=== PATIENT | female | born 1995 | race Caucasian/White ===

== ENCOUNTER 2018-05-26 10:06 | Outpatient (REF) | payer BC, SELFPAY ==
[2018-05-26 19:11] LABS: Cholesterol 194 mg/dL (50-200); Glucose 78 mg/dL (70-100); HDL Cholesterol 69 mg/dL (40-60); LDL CHOLESTEROL 107 mg/dL (<100); Triglyceride 111 mg/dL (30-150)
== END 2018-05-26 10:07 ==
LOC: NCHCN 10:06
PROVIDERS: PCP Nurse Practitioner Family; Visit Provider Nurse Practitioner Family
DX: Z00.00 Encounter for general adult medical examination without abnormal findings (principal); Z13.220 Encounter for screening for lipoid disorders; Z13.1 Encounter for screening for diabetes mellitus
CPT/HCPCS: 80061; 82947; 83721

== ENCOUNTER 2019-06-09 15:28 | Outpatient (REF) | payer BC, SELFPAY ==
--- NOTE | 2019-06-09 15:10 | PAPFT_PTH ---
PATIENT: Rima Moralez LOC: [facility] U#:[id number] AGE/SX: 23/F ROOM: RE06/09/[address]: Kezia Thorne : 1995 BED: DIS: 06/09/2019 SPEC #: [id number] RECD: 06/10/19 13:02 STATUS: IKE RERosy #: [id number] RACHEAL: 06/09/19 15:[address]: Kezia Thorne DEPT: [facility] Cytology RECD BY: Naa Elias Tissues: 1 - CX/ENDOCX FOR PAP SMEARS Procedures: PAP THIN PREP/UVM Screening HPV DNA PROBE Comments: [id number] (CHLAMYDIA/GC)
[2019-06-11 15:27] LABS: Chlamydia Result Negative; GC Result Negative; Specimen Description SEE COMMENTS
== END 2019-06-09 15:48 ==
LOC: NCHCN 15:28
PROVIDERS: PCP Nurse Practitioner Family; Visit Provider Nurse Practitioner Family
DX: Z11.3 Encounter for screening for infections with a predominantly sexual mode of transmission (principal); Z12.4 Encounter for screening for malignant neoplasm of cervix; Z11.51 Encounter for screening for human papillomavirus (HPV); Z01.419 Encounter for gynecological examination (general) (routine) without abnormal findings
CPT/HCPCS: 87491; 87591; 88142; 87624

== ENCOUNTER 2020-11-02 18:40 | Outpatient (REF) | payer BC, SELFPAY ==
[2020-11-02 20:05] LABS: HCT 41.3 % (36.0-46.0); HGB 13.8 g/dL (11.2-15.7); MCH 29.5 pg (27.0-33.0); MCHC 33.4 % (32.0-36.0); MCV 88.2 fL (80-95); MPV 9.2 fL (8.0-11.0); Platelet Count 302 10^3/uL (130-400); RBC 4.68 10^6/uL (3.93-5.22); RDW 11.6 % (11.7-14.6); RDW-SD 37.3 fL; WBC 12.67 10^3/uL (4.4-10.8)
[2020-11-02 20:26] LABS: Glucose 101 mg/dL (74-106); TSH 1.34 uIU/mL (0.36-3.74)
== END 2020-11-02 19:00 ==
LOC: NCHCN 18:40
PROVIDERS: PCP Nurse Practitioner Family; Visit Provider Internal Medicine
DX: G43.909 Migraine, unspecified, not intractable, without status migrainosus (principal); R42 Dizziness and giddiness; Z33.1 Pregnant state, incidental
CPT/HCPCS: 82947; 85027; 84443

== ENCOUNTER 2021-05-22 15:50 | Outpatient (CLI) | payer BC, SELFPAY ==
[2021-05-22 11:24] LABS: HCG Quant, Pregnancy 18 mIU/mL (1-3)
== END 2021-05-22 15:51 | disposition home or self-care (01) ==
LOC: LBO 15:51
PROVIDERS: PCP Internal Medicine; Visit Provider Advanced Practice Midwife
DX: O20.0 Threatened abortion (principal)
CPT/HCPCS: 36415; 86850; 86900; 86901; 84702

== ENCOUNTER 2021-05-24 03:35 | Outpatient (CLI) | payer BC, SELFPAY ==
[2021-05-24 16:34] LABS: HCG Quant, Pregnancy 9 mIU/mL (1-3)
== END 2021-05-24 03:36 | disposition home or self-care (01) ==
LOC: LBO 03:35
PROVIDERS: PCP Internal Medicine; Visit Provider Advanced Practice Midwife
DX: O20.0 Threatened abortion (principal)
CPT/HCPCS: 36415; 84702

== ENCOUNTER 2021-09-12 04:11 | Outpatient (CLI) | payer BC, SELFPAY ==
[2021-09-12 15:32] LABS: Kit/Specimen SENT
[2021-09-12 15:39] LABS: Abs Immature Grans 0.04 10^3/uL (0.0-0.06); Absolute Basophil Count 0.04 10^3/uL (0.0-0.2); Absolute Eosinophil Count 0.16 10^3/uL (0.0-0.7); Absolute Lymphocyte Count 3.21 10^3/uL (1.2-3.4); Absolute Monocyte Count 0.77 10^3/uL (0.1-0.8); Absolute Neutrophil Count 9.21 10^3/uL (1.2-6.7); Basophils % 0.3; Eosinophils % 1.2; HCT 34.8 % (36.0-46.0); HGB 12.1 g/dL (11.2-15.7); Immature Grans % 0.3; Lymphocytes % 23.9; MCHC 34.8 % (32.0-36.0); MCV 83.5 fL (80-95); MPV 9.2 fL (8.0-11.0); Monocytes % 5.7; Neutrophils % 68.6; Nucleated RBC 0 %; Platelet Count 233 10^3/uL (130-400); RBC 4.17 10^6/uL (3.93-5.22); RDW 11.8 % (11.7-14.6); RDW-SD 35.7 fL; WBC 13.43 10^3/uL (4.4-10.8)
[2021-09-12 16:02] LABS: *AMPHETAMINES SCREEN URINE Negative (Negative); *BARBITURATES SCREEN URINE Negative (Negative); *BENZODIAZEPINES SCREEN URINE Negative (Negative); Cannabinoids THC Negative (Negative); Cocaine Screen,Urine Negative (Negative); METHADONE URINE SCREEN Negative (Negative); OPIATES URINE SCREEN Negative (Negative)
[2021-09-12 16:20] LABS: Tricyclic Antidepressants Negative (Negative)
[2021-09-13 15:25] LABS: Chlamydia Result Negative (Negative); GC Result Negative (Negative)
[2021-09-14 08:58] LABS: Hepatitis B Surface Ag Negative (Negative)
[2021-09-14 09:34] LABS: HIV-1/2 Ag & Ab Screen Negative (Negative)
[2021-09-14 09:46] LABS: Hepatitis C Ab w Rflx HCV PCR Negative (Negative)
[2021-09-15 09:52] LABS: Varicella IgG Antibody Positive (See Note)
[2021-09-15 09:56] LABS: Rubella IgG Ab (UVM) Negative (See Note)
[2021-09-15 12:04] LABS: Syphilis Total Ab w/Reflex Nonreactive (Nonreactive)
[2021-09-17 10:28] LABS: Buprenorphine Negative ng/mL (Cutoff: 5.0)
[2021-09-21 10:35] LABS: Specimen WB Whole Blood
[2021-09-26 12:29] LABS: Result Summary NEGATIVE; Specimen WB Whole Blood
== END 2021-09-12 04:12 | disposition home or self-care (01) ==
LOC: LBO 04:11
PROVIDERS: PCP Internal Medicine; Visit Provider Advanced Practice Midwife
DX: Z34.91 Encounter for supervision of normal pregnancy, unspecified, first trimester (principal)
CPT/HCPCS: 80307; 81329; 86787; 86803; 87340; 87389; 87491; 87591; 81220; 85025; 86762; 86780; 87086

== ENCOUNTER 2022-01-05 01:45 | Outpatient (CLI) | payer BC, SELFPAY ==
[2022-01-05 10:40] LABS: HCT 31.9 % (36.0-46.0); HGB 10.8 g/dL (11.2-15.7); MCH 29.5 pg (27.0-33.0); MCHC 33.9 % (32.0-36.0); MCV 87.2 fL (80-95); MPV 8.3 fL (8.0-11.0); Platelet Count 220 10^3/uL (130-400); RBC 3.66 10^6/uL (3.93-5.22); RDW 12.3 % (11.7-14.6); RDW-SD 39.2 fL; WBC 17.86 10^3/uL (4.4-10.8)
[2022-01-05 10:49] LABS: Glucose,1 Hr (Glucola) 114 mg/dL (80-140)
== END 2022-01-05 01:46 | disposition home or self-care (01) ==
LOC: LBO 01:46
PROVIDERS: PCP Internal Medicine; Visit Provider Advanced Practice Midwife
DX: Z34.92 Encounter for supervision of normal pregnancy, unspecified, second trimester (principal)
CPT/HCPCS: 36415; 82950; 85027

== ENCOUNTER 2022-02-02 00:32 | Outpatient (CLI) | payer BC, SELFPAY ==
--- NOTE | 2022-02-02 06:30 | DI.US_ITS ---
Exam(s) US OB ROXANA WEIGHT EXAM: US OB ROXANA WEIGHT CLINICAL HISTORY: covid infection in ,u07.1. TECHNIQUE: Transabdominal obstetrical ultrasound performed. COMPARISON: US US OB 2-3 TRIMESTER from 11/02/2021 FINDINGS: Transabdominal obstetrical ultrasound performed. FINDINGS: Number of fetuses: One. position: Tor breech Placental location: There is a grade 1 posterior placenta. No evidence of previa. BIOMETRIC DATA: BPD: 77 mm = 31 weeks 1 day HC: 288 mm = 31 weeks 5 days AC: 272 mm = 31 weeks 2 days FL: 58 mm = 30 weeks 2 days EFW: 1677 grms 16% Composite Age: 31 weeks 1 day EDC: 04/05/2022 Heart Rate: 152BPM Amniotic fluid index: 14.1 cm. Visually, amount of fluid is within normal limits. IMPRESSION: 1. Single live intrauterine gestation as above. 2. Estimated weight is 1677gms. This is the 16th percentile 3. Amniotic fluid index is 14.1 cm. Visually within normal limits. DATA REPOSITORY:
== END 2022-02-02 00:52 ==
PROVIDERS: PCP Internal Medicine; Visit Provider Advanced Practice Midwife
DX: O98.513 Other viral diseases complicating pregnancy, third trimester (principal); U07.1 COVID-19; Z3A.31 31 weeks gestation of pregnancy
CPT/HCPCS: 76816

== ENCOUNTER 2022-03-05 17:11 | Outpatient (REF) | payer BC, SELFPAY | END 2022-03-05 17:12 | disposition home or self-care (01) | LOC: LBN 17:11 | PROVIDERS: PCP Internal Medicine; Visit Provider Advanced Practice Midwife | DX: Z34.93 Encounter for supervision of normal pregnancy, unspecified, third trimester (principal); Z3A.36 36 weeks gestation of pregnancy; Z36.85 Encounter for antenatal screening for Streptococcus B | CPT/HCPCS: 87081 ==

== ENCOUNTER 2022-03-07 02:45 | Outpatient (CLI) | payer BC, SELFPAY ==
[2022-03-07 09:23] LABS: Abs Immature Grans 0.15 10^3/uL (0.0-0.06); Absolute Basophil Count 0.05 10^3/uL (0.0-0.2); Absolute Eosinophil Count 0.17 10^3/uL (0.0-0.7); Absolute Monocyte Count 0.86 10^3/uL (0.1-0.8); Absolute Neutrophil Count 9.41 10^3/uL (1.2-6.7); Basophils % 0.4; Eosinophils % 1.3; HCT 36.5 % (36.0-46.0); HGB 12.1 g/dL (11.2-15.7); Immature Grans % 1.1; Lymphocytes % 19.5; MCH 29.6 pg (27.0-33.0); MCHC 33.2 % (32.0-36.0); MCV 89 fL (80-95); MPV 9.3 fL (8.0-11.0); Monocytes % 6.5; Neutrophils % 71.2; Nucleated RBC 0.2 % (0.0-0.3); Platelet Count 187 10^3/uL (130-400); RBC 4.09 10^6/uL (3.93-5.22); RDW 15.3 % (11.7-14.6); RDW-SD 49.2 fL; WBC 13.21 10^3/uL (4.4-10.8)
[2022-03-07 09:24] LABS: Absolute Lymphocyte Count 2.58 10^3/uL (1.2-3.4)
[2022-03-07 10:05] LABS: Source Nasal/Nares
[2022-03-07 11:06] LABS: COVID-19 PCR Negative (Negative)
== END 2022-03-07 02:46 | disposition home or self-care (01) ==
LOC: LBO 02:45
PROVIDERS: Obstetrics & Gynecology; PCP Internal Medicine; Visit Provider Internal Medicine
DX: O32.1XX0 Maternal care for breech presentation, not applicable or unspecified (principal); Z3A.36 36 weeks gestation of pregnancy; Z20.822 Contact with and (suspected) exposure to COVID-19; Z01.812 Encounter for preprocedural laboratory examination; Z01.818 Encounter for other preprocedural examination
CPT/HCPCS: 36415; 86850; 86900; 86901; 87635; 85025

== ENCOUNTER 2022-03-07 11:39 | Outpatient (CLI) | payer BC, SELFPAY ==
[2022-03-07 10:47] VITALS: BP 126/81; PULSE 88
[2022-03-07 10:50] VITALS: BP 126/81; PULSE 88; TEMP 37
[2022-03-07] MEDS: Lactated Ringers 1,000 ML 200 ML IV (11:30)
[2022-03-07 11:46] VITALS: BP 135/81; PULSE 88; RESP 20; TEMP 36.9
[2022-03-07] MEDS: Terbutaline 1 MG/ML VIAL 0.25 MG SC (11:47)
--- NOTE | 2022-03-07 12:21 | PROC.BLANK_ITS ---
Date of service: 03/07/22 Time of Service: 11:21 Version Note Version Note DATE OF PROCEDURE: 03/07/22 PRE-OP DIAGNOSES: Tor breech presentation at 36 weeks 4 days EGA POST-OP DIAGNOSES: same PROCEDURE: Unsuccessful attempt at external cephalic version SURGEON: Key Verma Assisting Surgeon: Ambar Green Anesthesia: none Complications: None Patient was transported to: no change Patient's condition: stable Indications: 26-year-old G3, P0 female with a breech presentation diagnosed at time of a OB ultrasound for growth and fluid check. Position was confirmed by ultrasound 03/05/2022 and patient counseled regarding external cephalic version. Findings: Fetus in the breech presentation with spine to maternal spine. Fundal placenta. Subjectively adequate fluid. NST reactive no evidence of decelerations. Procedure Description: After informed consent was obtained and patient voiced understanding of the risks and benefits of the procedure she received 0.25 mg of subcutaneous terbutaline. NST had been performed before hand and was category 1 heart rate tracing. Bedside ultrasound was used to confirm breech position. Water- based lubricant was used based over maternal abdomen. 1 provider applied pressure and up direction above the pubic symphysis and then hopes of lifting th e presenting part while second provider use an equal amount of pressure to direct head clockwise. The second attempt was unsuccessful as demonstrated by ultrasound. heart rate was 140 range at the completion of the first attempt. Second attempt in the same direction was performed and once again was unsuccessful. 2 more attempts were made this time in a counterclockwise direction and once again without disturbance of the heart rate. presenting part remained the buttocks and the head was midline with spine to maternal spine. Patient was monitored for 30 minutes after the procedure. She will follow-up for delivery counseling in the near future. She is aware that if she were to go into labor or experience spontaneous rupture membranes she needs to present to the center in expedient manner.
[2022-03-07 12:23] VITALS: BP 113/75; PULSE 106
[2022-03-07 14:45] VITALS: BP 125/77; PULSE 71
--- NOTE | 2022-03-07 16:11 | NUR.NOTE ---
Nursing Note: LATE NOTE FOR [id number] Gallegos AT BED SIDE [address] Anita mohamud breech position 1147 Terbutaline 0.25 mg SC given by Dr Song 1149attempt to turn baby by [address] Song [address] Song 1152 end attempt version 1152 FH by ultrasound [address] Song. 1154 end attempted version [address] Song 1203 end attempt. still Breech
--- OUTSIDE RECORDS SUMMARY | 2022-03-08 11:28 | XMS_ITS ---
:1995 Author Care Team Providers Name Role Phone PEACE RAMOS MD Primary Care Provider [phone] Allergies Code Code System Name Reaction Severity Status Onset NKDA ? Medications Name Status Start Date Stop Date ? ? diazepam 5 mg tablet Completed ? 08/05/2019 doxycycline hyclate 100 mg capsule Completed ? 08/05/2019 Eun Fe 1.5/30 (28) 1.5 mg-30 mcg (21)/75 mg (7) tablet Active ? Not available TAKE ONE TABLET BY MOUTH EVERY DAY misoprostol 200 mcg tablet Completed ? 08/05 Tri-Linyah (28) 0.18 mg(7)/0.215 mg(7)/0.25 mg(7)-35 mcg Complet ed ? 08/05/2019 tablet Problems None recorded. Procedures Date Name Performed by ? ? Removal of Wart Information not avai lable Notes: on right index finger ? Leg Surgery Information not avai lable Notes: broke leg Results Lab Results Date Name Specimen Result Interpretation Description Value Range Status Address ? 07/17/2019 Type + BLD - Abo A ? Final [facility], [facility] Lab Blood (Internal) : [address] ? ? BLD - Rh positive ? Final [facility] L ab (Internal) : [address] ? ? BLD - Ab Scrn negative negative Final [facility] L ab (Internal) : [address] Past Encounters 03/02/2022 Seen by Rayon Coner Arpita Cabrera MD: [address] [place] [phone], Ph. Social History Tobacco Smoking Status Never Smoker Vaccine List None recorded. Plan of Care Reminders Provider Appointments None recorded. ? ? Lab None recorded. ? ? Referral None recorded. ? ? Procedures None recorded. ? ? Surgeries None recorded. ? ? Imaging None recorded. ? ? Vitals 08/05/2019 04:20PM Office 20 Height Weight BMI Blood Pressure 157.48 cm 59.87 kg 24.1 kg/m2 120/70 mm[Hg] 07/20/2019 04:00PM Procedure 30 Height Blood Pressure 157.48 cm 126/78 mm[Hg]
--- OUTSIDE RECORDS SUMMARY | 2022-03-08 11:28 | XMS_ITS | Encounter Summary ---
:1995 Author Care Team Providers Name Role Phone Atul Marx MD Primary Care Provider [phone] Reason for Visit Visit Assessment and Plan 1. Seen by supervisor education We discussed routine care, fami ly risk factors, risk factors when applicable, maternal screenings, screenings after , benefits of , support by consu ltants, WIC in the medical home, car sea t inspection, male circumcision (when applicable) with risks and benefits and lack of strong clinical evidence thereof, safe sleep, office structure, policies and hours and rare possibility of reschedul ed appointments due to emergencies. Answered all questions. Will delivery at [facility], instructed to silvano l the day of discharge for a f/u appointment here. None of her records were availa ble for review today. Discussion Note: None recorded.Patient educational handouts: No information available. Plan of Care Reminders Provider Appointments None recorded. ? ? Lab None recorded. ? ? Referral None recorded. ? ? Procedures None recorded. ? ? Surgeries None recorded. ? ? Imaging None recorded. ? ? Medications Name Start Date ? ? Eun Fe 1.5/30 (28) 1.5 mg-30 mcg (21)/75 mg (7) tabl et ? TAKE ONE TABLET BY MOUTH EVERY DAY Medications Administered None recorded. Vitals None recorded. Results Lab Results None recorded. Allergies Code Code System Name Reaction Severity Onset NKDA ? ? ? Problems None recorded. Procedures Date Name Performed by ? ? Removal of Wart Information not avai lable Notes: on right index finger ? Leg Surgery Information not avai lable Notes: broke leg Vaccine List None recorded. Social History Tobacco Smoking Status Never Smoker What is your code status? 0 Functional Status Unknown. Past Encounters 03/02/2022 Seen by [employer] Arpita Cabrera MD: [address] [place] [phone], Ph. 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 </div><div>&l t;br></div><div>[facility] care, will delivery [facility]. </div><div&gt ;
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 Nopregnancy complications. </div><div>No smoking, no ETOH, no THC or drugs. 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 His first baby as well. </div><div>Pets: Dog, cat, bunnies, goats, chickens. </div><div>
</div><div>FHx: NO CCHD, no hip dysplasia, no genetic disease, no SIDS. </div><div>
</div>Review of Systems: ROS as noted in the HPI Review of Systems None recorded. Physical Exam ? Notes: <div> woman in NAD. </div>
== END 2022-03-07 13:15 | disposition home or self-care (01) ==
LOC: OBS 12:38 → BCD 03-09 10:05
PROVIDERS: PCP Internal Medicine; Visit Provider Obstetrics & Gynecology Gynecology
DX: O32.1XX0 Maternal care for breech presentation, not applicable or unspecified (principal); Z3A.36 36 weeks gestation of pregnancy
CPT/HCPCS: 59412; 85027; 86900; 86901

== ENCOUNTER 2022-03-26 03:36 | Outpatient (CLI) | payer BC, SELFPAY ==
[2022-03-26 10:35] LABS: HCT 38.7 % (36.0-46.0); HGB 13.4 g/dL (11.2-15.7); MCH 30.2 pg (27.0-33.0); MCHC 34.6 % (32.0-36.0); MCV 87 fL (80-95); MPV 9.3 fL (8.0-11.0); Platelet Count 177 10^3/uL (130-400); RBC 4.43 10^6/uL (3.93-5.22); RDW 14.9 % (11.7-14.6); RDW-SD 47.1 fL; WBC 13.51 10^3/uL (4.4-10.8)
== END 2022-03-26 03:37 | disposition home or self-care (01) ==
LOC: LBO 03:37
PROVIDERS: PCP Internal Medicine; Visit Provider Obstetrics & Gynecology Gynecology
DX: O32.1XX0 Maternal care for breech presentation, not applicable or unspecified (principal); Z01.818 Encounter for other preprocedural examination; Z01.812 Encounter for preprocedural laboratory examination; Z3A.39 39 weeks gestation of pregnancy
CPT/HCPCS: 36415; 85027; 86850; 86900; 86901

== ENCOUNTER 2022-03-26 03:48 | Outpatient (CLI) | payer BC, SELFPAY ==
[2022-03-26 09:56] LABS: Source Nasal/Nares
[2022-03-26 15:36] LABS: COVID-19 PCR Negative (Negative)
== END 2022-03-26 03:49 | disposition home or self-care (01) ==
LOC: LBO 03:49
PROVIDERS: PCP Internal Medicine; Visit Provider Obstetrics & Gynecology Gynecology
DX: Z20.822 Contact with and (suspected) exposure to COVID-19 (principal); Z01.818 Encounter for other preprocedural examination
CPT/HCPCS: 87635

== ENCOUNTER 2022-03-28 05:36 | Inpatient (IN) | payer BC, SELFPAY ==
--- NOTE | 2022-03-20 08:26 | ANES.CON_ITS ---
General Date of Service Date of Service: 03/20/22 Reason for Consult Requesting Provider: Key Verma How Consult Conducted:: Chart Review Reason for Consult:: Chiari Malformation type 1 Consult Recommendation after Review:: Matt Mackey, I reviewed Elisabeth's record at [facility] and the neruologist felt that her headaches were not related to the incidental finding of the Chiari Malformation type 1. No concerning symptoms were present so it was opted to observe rather than pursue any intervention at this time. Upon literature review of Chiari Malformation Type 1 with delivery, though there are theoretical risks to brain herniation with labor contractions, no instances of brain herniation was reported in a 2020 literature review going back to 1990. They did however recommend vaginal delivery under neuraxial blockade for asymptomatic patients and limiting maternal Valsalva efforts either via delivery under regional or general anesthesia or by choosing assisted vaginal delivery under neuraxial blockade. Thanks, Noreen On 03/15/22 @ 16:50 Key Verma Wrote To Anesthesia Group Patient is scheduled for primary delivery on 03/28/2022 secondary to a breech presentation.? GRE malformation type I as documented in [facility] records.? Presenting symptom was adult onset headaches.? None since she became .? She wanted to make sure that regional anesthesia was not contraindicated. ao Meds Allergies and Home Medications Allergies Allergy/AdvReac Type Severity Reaction Status Date / Time No Known Allergies Allergy Verified 03/15/22 16:01 Home Medication Medication Instructions Recorded vitamin-ferrous fumarate 1 tab PO DAILY 05/25/21 28 mg iron-folic acid 800 mcg tablet blood builder 1 tab PO DAILY 02/19/22 [facility] Active Problems Active Problems: Problem Status Onset Code Tinea versicolor B36.0 COVID-19 affecting in second trimester O98.512, U07.1 Rubella non-immune status, antepartum O99.891, Z28.3 Migraine G43.909 Z34.90 Medical History Medical History (Updated 12/29/21 @ 16:06 by Mery Ghosh) Chiari I malformation Dizziness Dysfunctional uterine bleeding Hx of migraines Chiari malformation diagnosed 03/2021 Surgical History Surgical History (Updated 09/12/21 @ 13:37 by Eve Mancilla CNM) Leg fracture, left Tib/Fib fracture and repair Tobacco Smoking/Tobacco Use Status: Never Prental History History 3 Para 0 Hx # Term Pregnancies 0 Multiple births 0 Hx # Pregnancies 0 Ectopic pregnancies 0 AB induced 1 Hx Number of Living Children 0 AB spontaneous 1 Past Pregnancies Del. Date GA/Weeks # Outcome Route Wgt Sex Labor Lgth Anesthes ia Location [facility] 05/21/21 Unsuccessful Delivery Date: 05/21/21 Last Updated by: Eve Mancilla CNM SAB Vital Signs & Lab Results Point of Care Results Nursing Point of Care Results: No Data to Display Lab Results Blood Type / Crossmatch: Patient ABO/Rh A Positive 03/07/22 Antibody Screen NEGATIVE 03/07/22 Complete Blood Count: White Blood Count 13.21 10^3/uL (4.4-10.8) H 03/07/22 09:20 Red Blood Count 4.09 10^6/uL (3.93-5.22) 03/07/22 09:20 Hemoglobin 12.1 g/dL (11.2-15.7) 03/07/22 09:20 Hematocrit 36.5 % (36.0-46.0) 03/07/22 09:20 Platelet Count 187 10^3/uL (130-400) 03/07/22 09:20 Complete Metabolic Panel: No Data to Display Liver Function Panel: No Data to Display Coagulation Panel: No Data to Display Cardiac Panel: No Data to Display Arterial Blood Gas: No Data to Display Venous Blood Gas: No Data to Display Pancreas Panel: No Data to Display Thyroid Panel: No Data to Display Infectious Disease: Coronavirus (COVID-19)(PCR) Negative (Negative) 03/07/22 09:55 Coronavirus 2019 Source Nasal/Nares 03/07/22 09:55 Blood Cultures: No Data to Display Toxicology Panel: No Data to Display Panel: No Data to Display Anesthesia Assessment and Plan Anesthesia History Personal History: No History of Anesthesia Complications Family History: No Family History of Anesthesia Complications Cardiac & Pulmonary Exam Does patient have a Pacemaker or an ICD?: No Airway Exam Known Difficult Airway: No Mallampati Class: 2 Mouth Opening: Normal (> 3cm) Thyromental Distance: Greater than 3 cm Neck Range of Motion: Full ROM Neck Circumference: Normal Teeth Condition: Normal Dentition
[2022-03-28] VITALS (11 sets, daily range): BP systolic 107–124; BP diastolic 64–86; PULSE 72–105; RESP 16–18; TEMP 36.6–37.1; O2SAT 96–99; BMI 30.9
[2022-03-28] MEDS: Lactated Ringers 1,000 ML 200 ML IV (06:45)
[2022-03-28] MEDS: ceFAZolin 2 GM/50 ML BAG IVPB (07:07)
[2022-03-28] MEDS: AZITHROMYCIN 500 MG in Normal Saline 250 ML 250 MG IVPB (07:08)
[2022-03-28] MEDS: Sodium Citrate 30 ML CUP PO (07:08)
--- NOTE | 2022-03-28 07:17 | ANES.PREOP_ITS ---
General Info Date of Service Date Performed: 03/28/22 Height: 5 ft 3 in Weight: 79.37 kg Body Mass Index (BMI): 30.9 Surgical Procedure: Operation Date: 03/28/22 07:40 Proposed Procedure Side Surgeon p Section Key Verma MD Actual Procedure Side Surgeon p Section Not Applicable Key Verma MD Pre-Op Diagnosis Post-Op Diagnosis Breech presentation Meds Allergies and Home Medications Allergies Allergy/AdvReac Type Severity Reaction Status Date / Time No Known Allergies Allergy Verified 03/28/22 07:10 Home Medication Medication Instructions Recorded vitamin-ferrous fumarate 1 tab PO DAILY 05/25/21 28 mg iron-folic acid 800 mcg tablet blood builder 1 tab PO DAILY 02/19/22 Current Visit Medications: Current Medications Generic Name Dose Route Start Last Admin Trade Name Freq PRN Reason Stop Dose Admin Citric Acid/Sodium Citrate 30 ml 03/27/22 14:00 03/28/22 07:08 Sodium Citrate 30 Ml Cup PO 30 ml PREOP MARIE Administration Sodium Chloride 500 mls @ 0 mls/hr 03/27/22 13:16 Saline 500ml Bag IV PRN PRN As Directed Ringer's Solution 1,000 mls @ 200 mls/hr 03/27/22 13:30 03/28/22 06:45 IV 200 mls/hr INFUSION MARIE Administration Cefazolin Sodium/Dextrose 2 gm in 50 mls @ 100 mls/hr 03/27/22 13:30 03/28/22 07:07 Ancef Duplex IVPB 100 mls/hr PREOP MARIE Administration Azithromycin 500 mg/ Sodium 250 mls @ 250 mls/hr 03/27/22 13:30 03/28/22 07:08 Chloride IVPB 250 mls/hr PREOP MARIE Administration IV Miscellaneous Supplies 1 each 03/27/22 13:30 Iv Access IV DIRECTED MARIE Sodium Chloride 0 ml 03/27/22 13:16 Normal Saline Flush 10 Ml Syr IVP PRN PRN PFSH Active Problems Active Problems: Problem Status Onset Code Preop examination Z01.818 Breech presentation O32.1XX0 Tinea versicolor B36.0 COVID-19 affecting in second trimester O98.512, U07.1 Rubella non-immune status, antepartum O99.891, Z28.3 Migraine G43.909 Z34.90 Medical History Medical History (Updated 03/26/22 @ 12:29 by Key Verma MD) Chiari I malformation Dizziness Dysfunctional uterine bleeding Hx of migraines Chiari malformation diagnosed 03/2021 Surgical History Surgical History (Updated 09/12/21 @ 13:37 by Eve Mancilla CNM) Leg fracture, left Tib/Fib fracture and repair Tobacco Smoking/Tobacco Use Status: Never Alcohol Alcohol Intake: never Substance Use Substance use: Never Substance use type: does not use Prental History History 3 Para 0 Hx # Term Pregnancies 0 Multiple births 0 Hx # Pregnancies 0 Ectopic pregnancies 0 AB induced 1 Hx Number of Living Children 0 AB spontaneous 1 Past Pregnancies Del. Date GA/Weeks # Outcome Route Wgt Sex Labor Lgth Anesthes ia Location Prov Complic 05/21/21 Unsuccessful Delivery Date: 05/21/21 Last Updated by: Eve Mancilla CNM SAB Vital Signs and Lab Results Vital Signs Most Recent Vital Signs in EMR: Most Recent Vital Signs Temp Pulse Resp BP Pulse Ox 36.6 C 105 H 18 122/86 98 03/28/22 06:38 03/28/22 06:38 03/28/22 06:38 03/28/22 06:38 03/28/22 06:38 Lab Results Result Diagrams: 03/28/22 06:00 Blood Type / Crossmatch: Patient ABO/Rh A Positive 03/26/22 Antibody Screen NEGATIVE 03/26/22 Complete Blood Count: White Blood Count 13.51 10^3/uL (4.4-10.8) H 03/26/22 10:24 Red Blood Count 4.43 10^6/uL (3.93-5.22) 03/26/22 10:24 Hemoglobin 13.4 g/dL (11.2-15.7) 03/26/22 10:24 Hematocrit 38.7 % (36.0-46.0) 03/26/22 10:24 Platelet Count 177 10^3/uL (130-400) 03/26/22 10:24 Complete Metabolic Panel: No Data to Display Liver Function Panel: No Data to Display Coagulation Panel: No Data to Display Cardiac Panel: No Data to Display Arterial Blood Gas: No Data to Display Venous Blood Gas: No Data to Display Pancreas Panel: No Data to Display Thyroid Panel: No Data to Display Infectious Disease: Coronavirus (COVID-19)(PCR) Negative (Negative) 03/26/22 09:25 Coronavirus 2019 Source Nasal/Nares 03/26/22 09:25 Blood Cultures: No Data to Display Toxicology Panel: No Data to Display Panel: No Data to Display Anesthesia Assessment and Plan Anesthesia History Personal History: No History of Anesthesia Complications Family History: No Family History of Anesthesia Complications Exercise Tolerance Exercise Tolerance: Metabolic Equivalents>4 Pertinent Negatives Pertinent Negatives: No Symptoms of GERD, No Major Cardiovascular Symptoms or Complaints and No Major Pulmonary Symptoms or Complaints Cardiac & Pulmonary Exam Cardiac Exam: Normal S1/S2 Heart Sounds Pulmonary Exam: Clear Bilateral Breath Sounds Implantable Cardiac Device Does patient have a Pacemaker or an ICD?: No Airway Exam Known Difficult Airway: No Mallampati Class: 2 Mouth Opening: Normal (> 3cm) Thyromental Distance: Greater than 3 cm Neck Range of Motion: Full ROM Neck Circumference: Normal Teeth Condition: Normal Dentition ASA Classification ASA Score: ASA 3 Emergency Case?: No NPO Status NPO Status: NPO Clears >2 hours, Solids >8 hours and Full Stomach Status Status: Confirmed Anesthesia Plan Resuscitation Status: Full Code Anesthesia Technique: Spinal Anesthesia Airway Planned: Natural Airway Pain Management: Intrathecal Analgesia Monitors Used: Standard Monitors
--- NOTE | 2022-03-28 08:38 | ROE_ITS ---
Date of service: 03/28/22 Time of Service: 08:38 Operative Note Operative Note DATE OF PROCEDURE: 03/28/22 PRE-OP DIAGNOSIS: breech presentation at term. primary scheduled LTCS PROCEDURE: Scheduled low transverse delivery SURGEON: Key Verma ASSISTING SURGEON: Ambar Green Refer to Anesthesia Record ESTIMATED BLOOD LOSS: 300 PATHOLOGY: none sent (Cord blood to laboratory) COMPLICATIONS: None Patient was transported to: floor Patient's condition: stable Implants: None Indications: 26-year-old G1 now P1 female with a persistent breech presentation. Patient underwent an unsuccessful external cephalic version at 36weeks 4 days EGA. Findings: Viable male infant in ayse breech presentation spine to maternal spine. Clear amniotic fluid. Normal placenta with three-vessel cord. Normal adnexa uterus and pelvis. Wt 2930gm. His parents plan to name him Willy. Procedure Description: Patient was taken to the operating room she is placed in the sitting position and spinal anesthesia was administered without difficulty. She was then placed in the dorsal supine position with a leftward tilt. SCDs and a Cano catheter to gravity drainage were in place. A vaginal prep with Betadine was performed a nd the patient was prepped and draped in the usual sterile fashion. After a adequate level of anesthesia was achieved a Pfannenstiel skin incision was made approximately 2 cm superior to the pubic symphysis using a scalpel and the underlying subcutaneous tissue dissected using Bovie electrocautery to the level of the rectus fascia. The rectus fascia was then nicked in the midline and the fascial incision extended laterally using curved Levi scissors. 2 Von clamps were applied to the inferior rectus fascia and the rectus fascia was dissected off of the underlying rectus muscles using Bovie electrocautery and blunt technique. A similar technique was carried out on the superior rectus fascia. Rectus muscles were then in the midline and the peritoneum entered bluntly. The peritoneal incision was extended laterally using blunt technique. The vesicle-uterine peritoneum over lower uterine segment was incised with curved Levi scissors and the bladder flap created bluntly. Scalpel was used to incise the lower uterine segment in a transverse fashion. The uterine incision was extended bluntly and the amniotic sac was ruptured and a finger was placed on each anterior superior iliac crest of the breech presentation and the buttocks followed by the trunk were delivered to the level of the shoulders and the head was delivered atraumatically. The cord was doubly clamped and cut and the infant handed off to the waiting pediatric team. Cord bloods were obtained and the placenta was extracted with a combination of fundal massage and gentle cord traction. The uterus was exteriorized cleared of all clots and debris and the uterine incision reapproximated with a running lock suture of 0 Vicryl followed by a second imbricating suture of 0 Vicryl. Uterine incision was noted be hemostatic. The uterus was returned to the abdomen and the paracolic gutters cleared of all clots and debris. Uterine incision, the bladder flap, and the abdominal wall were inspected and noted to be hemostatic. The rectus fascia was reapproximated with a running suture of 0 Vicryl. space within the subcutaneous tissue closed with a running suture of 2-0 Vicryl. The skin incision was reapproximated with a subcuticular closure of 4-0 Monocryl. Steri-Strips were placed over the incision and the incision covered with a dry sterile dressing.. The uterus was massaged for any remaining clots and debris. The patient was transported to recovery area in stable condition. All sponge, lap, and needle counts correct x2.
[2022-03-28] MEDS: Ketorolac 30 MG/ML VIAL IVP ×2 (14:21→20:06)
[2022-03-28] MEDS: Normal Saline Flush 10 ML SYR IVP ×2 (14:22→20:08)
[2022-03-29 04:15] VITALS: BP 120/75; PULSE 75; RESP 16; TEMP 36.9; O2SAT 99
[2022-03-29 06:28] LABS: Abs Immature Grans 0.14 10^3/uL (0.0-0.06); Absolute Monocyte Count 0.88 10^3/uL (0.1-0.8); Absolute Neutrophil Count 11.57 10^3/uL (1.2-6.7); Basophils % 0.3; Eosinophils % 1.1; HCT 33.4 % (36.0-46.0); HGB 11.2 g/dL (11.2-15.7); Immature Grans % 0.9; Lymphocytes % 15.6; MCH 29.9 pg (27.0-33.0); MCHC 33.5 % (32.0-36.0); MCV 89 fL (80-95); MPV 9.4 fL (8.0-11.0); Monocytes % 5.8; Neutrophils % 76.3; Platelet Count 145 10^3/uL (130-400); RBC 3.75 10^6/uL (3.93-5.22); RDW 15.2 % (11.7-14.6); RDW-SD 48.7 fL; WBC 15.16 10^3/uL (4.4-10.8)
[2022-03-29 06:29] LABS: Absolute Basophil Count 0.05 10^3/uL (0.0-0.2); Absolute Eosinophil Count 0.17 10^3/uL (0.0-0.7); Absolute Lymphocyte Count 2.36 10^3/uL (1.2-3.4)
[2022-03-29] MEDS: Docusate Sodium 100 MG CAP PO ×2 (08:23→23:57)
[2022-03-29] MEDS: oxyCODONE 5 mg/Acetaminophen 325 mg TAB PO ×3 (08:23→16:55)
[2022-03-29 08:30] VITALS: BP 130/84; PULSE 83; RESP 18; TEMP 37; O2SAT 99
[2022-03-29] MEDS: Ibuprofen 600 MG TAB PO ×2 (12:22→19:43)
[2022-03-29 12:25] VITALS: BP 122/82; PULSE 88; RESP 20; TEMP 37.1; O2SAT 97
--- NOTE | 2022-03-29 13:20 | W.ANESPOSTOP ---
Postoperative Evaluation Date, Time and Location Date Performed: 03/29/22 Time Performed: 13:20 Patient Location: Obstetrics Vital Signs Most Recent Imported Vital Signs: Most Recent Vital Signs Temp Pulse Resp BP Pulse Ox 37.0 C 83 18 130/84 99 03/29/22 08:30 03/29/22 08:30 03/29/22 08:30 03/29/22 08:30 03/29/22 08:30 Pain Score Most Recent Pain Score: Most Recent Pain Score Pain Level 2 03/29/22 12:22 Assessment Mental Status: Awake (Alert & Oriented to Patient Baseline) Airway and Respiratory Function: Patent airway with normal (patient baseline) respiratory exam Cardiovascular Function: Hemodynamically Stable Hydration Status: Adequately Hydrated Nausea & Vomiting: No Nausea or Vomiting Pain: Pain is tolerable per patient Peripheral Nerve Block: Patient did not receive a nerve block Postoperative Comments:: doing well, comfortable with no nausea or headache.
[2022-03-29 16:50] VITALS: BP 122/84; PULSE 90; TEMP 36.5; O2SAT 95
--- NOTE | 2022-03-29 17:04 | DSE_ITS ---
Date of service: 03/29/22 Time of Service: 17:04 DS: Diagnosis Discharge Diagnosis (1) Breech presentation: Status: Acute (2) S/P primary low transverse : Status: Acute Asessment and Plan: 03/28/22. For breech presentation after unsuccessful ECV. M. 2930gm. Willy Discharge Plan Disposition Patient Disposition: HOME Condition: Improving Discharge Details Reason For Visit: Delivery Admit Date/Time: 03/28/22 05:36 Admit Provider: Key Verma Attending Provider: Key Verma [facility] Hospital Course: Admitted to hospital morning of surgery and underwent an uncomplicated LTCS. Infant in ayse breech presentation with clear amniotic fluid. Nl placenta. Nl uterus and adnexa. Pt discharged to home POD2 successfully breast feeding. She will f/u in [facility] in 2 weeks for an inspection of incision and assessment of maternal well being. Home Meds and New Rx's Prescriptions: No Action vit-iron fum-folic ac 28 mg iron- 800 mcg tablet 1 tab PO DAILY blood builder tablet 1 tab PO DAILY Discharge Instructions Additional Instructions: Make an appointment for a visit to [facility] in 2 weeks. You have two prescriptions that have been sent to the [facility] in [facility]. Percocet 5/325 10 tablets. Take one tablet every 6 hours as needed for strong pain. The other prescription is for Ibuprofen 600mg every 6 hours as needed for milder pain. Stand Alone Forms: BC Instructions, BC Discharge Instruc Activity:: Activity as Tolerated Equipment/Supplies:: No Equipment Needed Diet:: As Tolerated OB:DS Summary Summary Delivery Method: Primary Episiotomy Description: None Laceration Description: None Laceration Extension: N/A complications OB DS: none Contraception Discussed Contraception Discussed: No, [place] Gender-Baby A: Male weight: 6 lb 7.353 oz Disposition of Baby A: Home Status at Discharge Functional status at discharge: independent ambulation Overall status at discharge: patient is progressing back to baseline Mental Status: mental status grossly normal Speech and Movement: speech and movement normal Mood: congruent mood Affect: normal affect Time Spent with Patient providing and/or coordinating discharge services: Less than 30 minutes Exam Physical Exam Vital signs: Temp Pulse Resp BP Pulse Ox 98.8 F 88 20 122/82 97 03/29/22 12:25 03/29/22 12:25 03/29/22 12:25 03/29/22 12:25 03/29/22 12:25 Vital Signs Reviewed: Yes Narrative: 26-year-old G1 now P1 female with a persistent breech presentation.? Patient underwent an unsuccessful external cephalic version at 36weeks 4 days EGA. She was admitted the morning of 03/28/22 and underwent a LTCS without complications. Findings: Viable male infant in ayse breech presentation spine to maternal spine.? Clear amniotic fluid.? Normal placenta with three-vessel cord.? Normal adnexa uterus and pelvis. Wt 2930gm. (6lb7oz) His parents plan to name him Willy. PFSH All Active Problems (Updated 03/26/22 @ 12:29 by Key Verma MD) S/P primary low transverse (Acute) Preop examination (Acute) Breech presentation (Acute) Tinea versicolor (Acute) axilla and abdomen COVID-19 affecting in second trimester (Acute) Rubella non-immune status, antepartum (Acute) Migraine (Chronic) (Acute) Medical History (Updated 03/26/22 @ 12:29 by Key Verma MD) Chiari I malformation Dizziness Dysfunctional uterine bleeding Hx of migraines Chiari malformation diagnosed 03/2021 Surgical History (Updated 03/29/22 @ 17:05 by Key Verma MD) Leg fracture, left Tib/Fib fracture and repair Family History (Updated 09/12/21 @ 13:40 by Eve Mancilla CNM) Father Hypertension meds in the past Social History (Updated 03/29/22 @ 17:07 by Key Verma MD) Smoking/Tobacco Use Status: Never Smoking risk assessment performed?: Yes Alcohol Intake: never Drug use: Never Substance use type: does not use Household members: spouse, children and other Details: H-Markie. 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 Do you feel safe at home: Yes Do you feel safe in your relationship?: Yes History History 3 Para 0 Hx # Term Pregnancies 0 Multiple births 0 Hx # Pregnancies 0 Ectopic pregnancies 0 AB induced 1 Hx Number of Living Children 0 AB spontaneous 1 Past Pregnancies Del. Date GA/Weeks # Outcome Route Wgt Sex Labor Lgth Anesthes ia Location Prov Complic 05/21/21 Unsuccessful Delivery Date: 05/21/21 Last Updated by: NATASHA Horta DS: Data Vitals/I&O Vitals and I&O: Vital Signs Temperature 98.8 F 03/29/22 12:25 Pulse 88 03/29/22 12:25 Pulse Rhythm Regular 03/29/22 08:30 Respiratory Rate 20 03/29/22 12:25 Respiratory Depth Normal 03/29/22 08:30 Blood Pressure 122/82 03/29/22 12:25 Blood Pressure Mean 95 03/29/22 12:25 Pulse Oximetry 97 03/29/22 12:25 Oxygen Delivery Method Room Air 03/28/22 06:38 Oxygen Flow Rate 0 03/28/22 06:38 Pain Level 4 03/29/22 16:55 Comment 03/28/22 16:12 Intake & Output 03/28/22 03/29/22 03/29/22 23:59 11:59 23:59 Intake Total 1360 / 1960 600 / 1200 600 / 1200 Output Total 600 / 1050 3100 / 3550 450 / 3550 Balance 760 / 910 -2500 / -2350 150 / -2350 Intake: IV 710 / 1310 Oral 650 / 650 600 / 1200 600 / 1200 Output: Urine 600 / 650 3100 / 3550 450 / 3550 Other: Urine Color Yellow Yellow Urine Appearance Clear Clear Comment cummings removed now Data Completed and Pending Labs on day of discharge: Labs from last 24 hours 03/29/22 06:15 WBC 15.16 H RBC 3.75 L Hgb 11.2 D Hct 33.4 L MCV 89 MCH 29.9 MCHC 33.5 D RDW 15.2 H Plt Count 145 MPV 9.4 Immature Gran % 0.9 Neutrophils % 76.3 Lymphocytes % 15.6 Monocytes % 5.8 Eosinophils % 1.1 Basophils % 0.3 Nucleated RBC % 0.0 Absolute Neutrophils 11.57 H Absolute Lymphocytes 2.36 Absolute Monocytes 0.88 H Absolute Eosinophils 0.17 Absolute Basophils 0.05
--- NOTE | 2022-03-29 18:27 | W.PM.OBPNV1 ---
Date of service: 03/29/22 Time of Service: 18:28 Assessment and Plan Assessment and plan (1) S/P primary low transverse : Status: Acute Assessment and plan: Postop day 1 primary low transverse delivery satisfactory recovery. We will assist with breast-feeding today and plan discharge home tomorrow. Subjective Subjective Patient comments: Pain well controlled (Patient has been using ibuprofen and Percocet), Tolerating diet and Flatus present Patient's Mood: Adjusting to her new role [place] baby status: Doing well, Nursing well and Rooming in feeding status: Exclusively breast feeding Exam Physical Exam Vital signs: Temp Pulse Resp BP Pulse Ox 97.7 F 90 20 122/84 95 03/29/22 16:50 03/29/22 16:50 03/29/22 12:25 03/29/22 16:50 03/29/22 16:50 Vital Signs Reviewed: Yes Constitutional Constitutional: no acute distress HEENT Exam HEENT Exam: Not Done Neck Exam Neck Exam: Not Done Respiratory Exam Respiratory Exam: Normal Cardiovascular Exam Cardiovascular Exam: Normal Abdominal Exam Abdomen: Tender (Mildly tender to palpation) Fundal Exam Fundus: Below Umbilicus Rectal Exam Rectal Exam: Not Done Extremities Exam Extremity Exam: Normal; negative Calf Tenderness Back/Spine/Pelvis Exam Back Exam: Normal Skin Exam Skin Exam: Normal (Dry sterile dressing over Pfannenstiel skin incision has not yet been removed) Neurological Exam Neurological Exam: Normal Psychiatric Exam Psychiatric Exam: Normal Results Hemoglobin/Hematocrit: Hgb 11.2 g/dL (11.2-15.7) D 03/29/22 06:15 Hct 33.4 % (36.0-46.0) L 03/29/22 06:15 Abnormal Lab Findings: Abnormal Labs 03/29/22 06:15 WBC 15.16 H RBC 3.75 L Hct 33.4 L RDW 15.2 H Absolute Neutrophils 11.57 H Absolute Monocytes 0.88 H
[2022-03-29 19:20] VITALS: BP 128/84; PULSE 91; RESP 16; TEMP 36.9; O2SAT 98
[2022-03-30] VITALS: BP 122/81; PULSE 81; RESP 18; TEMP 36.6; O2SAT 98
[2022-03-30] MEDS: Acetaminophen 325 MG TAB 650 MG PO ×2 (03:39→10:46)
[2022-03-30 03:42] VITALS: BP 130/85; PULSE 80; RESP 18; TEMP 36.7; O2SAT 98
[2022-03-30 08:00] VITALS: BP 125/80; PULSE 78; RESP 14; TEMP 37
[2022-03-30] MEDS: Measles, Mumps, & Rubella Vaccine 0.5 ML VIAL SC (10:15)
[2022-03-30] MEDS: Ibuprofen 600 MG TAB PO (10:46)
--- NOTE | 2022-03-30 11:31 | W.PM.OBPNV1 ---
Date of service: 03/30/22 Time of Service: 11:31 Assessment and Plan Assessment and plan (1) S/P primary low transverse : Status: Acute Assessment and plan: Postoperative day #2 status post primary low-transverse section breech presentation. Patient will be discharged home today. Follow-up in the office in 1 week and 6 weeks. All questions were answered. Instructions were given. Exam Physical Exam Vital signs: Temp Pulse Resp BP Pulse Ox 98.6 F 78 14 125/80 98 03/30/22 08:00 03/30/22 08:00 03/30/22 08:00 03/30/22 08:00 03/30/22 03:42 Vital Signs Reviewed: Yes Constitutional Constitutional: no acute distress HEENT Exam HEENT Exam: Normal Neck Exam Neck Exam: Normal Respiratory Exam Respiratory Exam: Normal Cardiovascular Exam Cardiovascular Exam: Normal Abdominal Exam Abdomen: Other (Soft nontender. Incision clean dry and intact. Steri-Strips in place.) Extremities Exam Extremity Exam: Normal; negative Calf Tenderness Psychiatric Exam Psychiatric Exam: Normal Results Hemoglobin/Hematocrit: Hgb 11.2 g/dL (11.2-15.7) D 03/29/22 06:15 Hct 33.4 % (36.0-46.0) L 03/29/22 06:15 Abnormal Lab Findings: Abnormal Labs 03/29/22 06:15 WBC 15.16 H RBC 3.75 L Hct 33.4 L RDW 15.2 H Absolute Neutrophils 11.57 H Absolute Monocytes 0.88 H
--- NOTE | 2022-03-30 11:34 | DSE_ITS ---
Date of service: 03/30/22 Time of Service: 11:34 DS: Diagnosis Discharge Diagnosis (1) S/P primary low transverse : Status: Acute Discharge Plan Disposition Patient Disposition: HOME Condition: Improving Discharge Details Reason For Visit: Delivery Admit Date/Time: 03/28/22 05:36 Admit Provider: Key Verma Attending Provider: Key Verma Primary Care Provider: Atul Marx Hospital Course Hospital Course: Admitted to hospital morning of surgery and underwent an uncomplicated LTCS. Infant in ayse breech presentation with clear amniotic fluid. Nl placenta. Nl uterus and adnexa. Pt discharged to home POD2 successfully breast feeding. She will f/u in [facility] in 2 weeks for an inspection of incision and assessment of maternal well being. Home Meds and New Rx's Prescriptions: New docusate sodium [Colace] 100 mg capsule 100 mg PO DAILY Qty: 20 0RF No Action vit-iron fum-folic ac 28 mg iron- 800 mcg tablet 1 tab PO DAILY blood builder tablet 1 tab PO DAILY ibuprofen 600 mg tablet 600 mg PO Q6H PRN (Reason: pain) Qty: 60 1RF oxycodone-acetaminophen [Endocet] 5-325 mg tablet 1 tab PO Q6H MDD 4 PRN (Reason: pain) Qty: 10 0RF Discharge Instructions Additional Instructions: Make an appointment for a visit to [facility] in 2 weeks. You have two prescriptions that have been sent to the [facility] in [facility]. Percocet 5/325 10 tablets. Take one tablet every 6 hours as needed for strong pain. The other prescription is for Ibuprofen 600mg every 6 hours as needed for milder pain. Stand Alone Forms: BC Instructions, BC Discharge Instr Activity:: Activity as Tolerated Equipment/Supplies:: No Equipment Needed Diet:: As Tolerated Discharge Orders Discharge Orders: Discharge Order (Routine); Ordered 03/30/22 Ordered By: Ambar Green OB:DS Summary Summary Delivery Method: Primary Episiotomy Description: None Laceration Description: None Laceration Extension: N/A Contraception Discussed Contraception Discussed: No, [place] Gender-Baby A: Male weight: 6 lb 7.353 oz Status at Discharge Functional status at discharge: independent ambulation Overall status at discharge: patient is progressing back to baseline Mental Status: mental status grossly normal Speech and Movement: speech and movement normal Mood: congruent mood Affect: normal affect Exam Physical Exam Vital signs: Temp Pulse Resp BP Pulse Ox 98.6 F 78 14 125/80 98 03/30/22 08:00 03/30/22 08:00 03/30/22 08:00 03/30/22 08:00 03/30/22 03:42 Narrative: Please see physical exam date PFSH All Active Problems (Updated 03/29/22 @ 17:20 by Key Verma MD) Post-op pain (Acute) S/P primary low transverse (Acute) Preop examination (Acute) Breech presentation (Acute) Tinea versicolor (Acute) axilla and abdomen COVID-19 affecting in second trimester (Acute) Rubella non-immune status, antepartum (Acute) Migraine (Chronic) (Acute) Medical History (Updated 03/29/22 @ 17:20 by Key Verma MD) Chiari I malformation Dizziness Dysfunctional uterine bleeding Hx of migraines Chiari malformation diagnosed 03/2021 Surgical History (Updated 03/29/22 @ 17:05 by Key Verma MD) Leg fracture, left Tib/Fib fracture and repair Family History (Updated 09/12/21 @ 13:40 by Eve Mancilla CNM) Father Hypertension meds in the past Social History (Updated 03/29/22 @ 17:07 by Key Verma MD) Smoking/Tobacco Use Status: Never Smoking risk assessment performed?: Yes Alcohol Intake: never Drug use: Never Substance use type: does not use Household members: spouse, children and other Details: H-Markie. 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 Do you feel safe at home: Yes Do you feel safe in your relationship?: Yes History History 3 Para 0 Hx # Term Pregnancies 0 Multiple births 0 Hx # Pregnancies 0 Ectopic pregnancies 0 AB induced 1 Hx Number of Living Children 0 AB spontaneous 1 Past Pregnancies Del. Date GA/Weeks # Outcome Route Wgt Sex Labor Lgth Anesthes ia Location Prov Complic 05/21/21 Unsuccessful Delivery Date: 05/21/21 Last Updated by: Eve Mancilla CNM SAB DS: Data Vitals/I&O Vitals and I&O: Vital Signs Temperature 98.6 F 03/30/22 08:00 Pulse 78 03/30/22 08:00 Pulse Rhythm Regular 03/30/22 08:00 Respiratory Rate 14 03/30/22 08:00 Respiratory Depth Normal 03/29/22 08:30 Blood Pressure 125/80 03/30/22 08:00 Blood Pressure Mean 95 03/30/22 08:00 Pulse Oximetry 98 03/30/22 03:42 Oxygen Delivery Method Room Air 03/28/22 06:38 Oxygen Flow Rate 0 03/28/22 06:38 Pain Level 3 03/30/22 10:46 Comment 03/28/22 16:12 Intake & Output 03/29/22 03/29/22 03/30/22 11:59 23:59 11:59 Intake Total 600 / 1200 600 / 1200 Output Total 3100 / 4000 900 / 4000 Balance -2500 / -2800 -300 / -2800 Intake: Oral 600 / 1200 600 / 1200 Output: Urine 3100 / 4000 900 / 4000 Other: Urine Color Yellow Urine Appearance Clear Comment cummings removed now
== END 2022-03-30 13:40 | disposition home or self-care (01) | DRG 786 ==
LOC: SUR 10:36 → OBS 10:36
PROVIDERS: Admitting Provider Obstetrics & Gynecology Gynecology; PCP Internal Medicine; Visit Provider Obstetrics & Gynecology Gynecology
PROC: 10D00Z1 Extraction of Products of Conception, Low, Open Approach (ICD-10-PCS; CPT 59514; principal; 2022-03-28 07:30)
DX: O32.1XX0 Maternal care for breech presentation, not applicable or unspecified (principal); G93.5 Compression of brain; O99.354 Diseases of the nervous system complicating childbirth; Z3A.39 39 weeks gestation of pregnancy; Z37.0 Single live birth
CPT/HCPCS: 59514; 36415; 85027; 86900; 86901; 87635; 85025; J0456; J0690; J1885; J2370; J2405; J3010

== ENCOUNTER 2022-12-26 18:14 | Outpatient (REF) | payer BC, SELFPAY ==
[2022-12-26 19:54] LABS: Abs Immature Grans 0.03 10^3/uL (0.0-0.06); Absolute Eosinophil Count 0.19 10^3/uL (0.0-0.7); Absolute Lymphocyte Count 2.48 10^3/uL (1.2-3.4); Absolute Monocyte Count 0.54 10^3/uL (0.1-0.8); Basophils % 0.4; Eosinophils % 1.7; HCT 45.1 % (36.0-46.0); HGB 14.9 g/dL (11.2-15.7); Immature Grans % 0.3; Lymphocytes % 21.7; MCH 28.3 pg (27.0-33.0); MCV 86 fL (80-95); MPV 9.5 fL (8.0-11.0); Monocytes % 4.7; Neutrophils % 71.2; Platelet Count 317 10^3/uL (130-400); RBC 5.27 10^6/uL (3.93-5.22); RDW 12.7 % (11.7-14.6); RDW-SD 38.8 fL; WBC 11.41 10^3/uL (4.4-10.8)
[2022-12-26 19:56] LABS: Absolute Basophil Count 0.05 10^3/uL (0.0-0.2); Absolute Neutrophil Count 8.12 10^3/uL (1.2-6.7)
[2022-12-26 20:10] LABS: Iron 68 ug/dL (50-170); Total Iron Binding Capacity 318 ug/dL (250-450); Transferrin Sat 21 % (15-50)
[2022-12-26 20:19] LABS: ALT 18 U/L (14-59); AST 20 U/L (15-37); Alkaline Phosphatase 85 U/L (46-116); Anion Gap 6.7 mmol/L (3-11); BUN 8 mg/dL (7-18); Bilirubin, Total 0.5 mg/dL (0.2-1.0); CO2 31.3 mmol/L (21.0-32.0); CREATININE 0.6 mg/dL (0.55-1.02); Calcium 9.9 mg/dL (8.5-10.1); Chloride 102 mmol/L (98-107); Estimated GFR 125.31 (mL/min/1.73m2); Ferritin 99 ng/mL (8-252); Glucose 91 mg/dL (74-106); Potassium 4.3 mmol/L (3.5-5.1); Sodium 140 mmol/L (136-145); TSH (W/Ref FT4) 0.68 uIU/mL (0.36-3.74); Total Protein 8.7 g/dL (6.4-8.2)
== END 2022-12-26 18:15 | disposition home or self-care (01) ==
LOC: NCHCN 18:14
PROVIDERS: PCP Internal Medicine; Visit Provider Physician Assistant
DX: G44.52 New daily persistent headache (NDPH) (principal); R42 Dizziness and giddiness; R71.8 Other abnormality of red blood cells
CPT/HCPCS: 80053; 82728; 83540; 83550; 84443; 85025

== ENCOUNTER 2023-07-03 15:54 | Emergency (ER) | payer BC, SELFPAY ==
--- NOTE | 2023-07-03 15:45 | RT.EKG_ITS ---
APPROVED REPORT Exam: Resting ECG Reason for Exam: chest pain Patient Location: E HR:118 bpm ECG Measurements Heart Rate 118 AXIS IN 125 P 47 QRSd 70 QRS 15 QT 287 T -11 QTc 403 Conclusion Sinus tachycardia...rate> 99 Low voltage, precordial leads...precordial leads <1.0mV ST normal intervals diffuse T wave flattening. No STEMI. No previous available for comparison.
[2023-07-03 15:58] VITALS: BP 148/83; PULSE 117; RESP 20; TEMP 39.2; O2SAT 99
--- NOTE | 2023-07-03 16:39 | ED.GENADUL_ITS ---
Discharge Plan Disposition Patient Disposition: Home Condition: Improving Discharge Details Clinical Impression: Fever, Pulmonary air trapping Primary Care Provider: Guillermina Kumar ED Provider: Arpita Grant Home Meds and New Rx's Prescriptions: New albuterol sulfate 90 mcg/actuation HFA aerosol inhaler 3 puff inhalation Q4H PRNQty: 6.7 0RF Rx Instructions: 3 puffs, 5 minutes apart every 4 hours as needed for shortness of breath. Use with spacer No Action prenat.vits,silvano,bqx-bhgw-obhal Tablet 1 tab PO DAILY cyproheptadine 4 mg tablet 4 mg PO Q8H Qty: 60 2RF Discharge Instructions Instructions: Fever in Adults (ED) Additional Instructions: 1. Call your primary care provider in the morning for a follow-up appointment and recheck. Tell them that your tick panel is still pending. You may access the results through the patient portal or have your primary care provider obtain the results. Consider repeating the Monospot if your symptoms continue. We also manolo blood cultures and urine cultures which will be resulted in 48 hours. 2. A prescription for an albuterol inhaler has been sent to your pharmacy. Use 3 puffs with a spacer 5 minutes apart every 4 hours as needed for shortness of breath. 3. Alternate 1000 mg of acetaminophen every 3 hours with 400 600 mg of ibuprofen as needed for pain and/or fever. 4. Return to the emergency department for any new or worrisome symptoms. Discharge Data Discharge Physician: Arpita Grant Medical Decision Making This is a healthy 27-year-old female who presents with 3 days of malaise and fever. 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 She is complaining of pleuritic right-sided chest pain but has not had a cough. She is febrile here. We we will check a test since the patient does not use any control. We will check a D-dimer and if positive we will obtain a CT of the chest to rule out PE and pneumonia. She has not had a cough or URI symptoms. She has not had any dysuria. She could certainly have COVID or more likely a viral infection. She could have a tickborne illness. If her D-dimer is negative we will obtain a chest x-ray if positive she will get a CT scan. I will give her IV fluids. We will check a CBC and a comprehensive metabolic panel to check renal function and electrolytes and LFTs. She has not had any abdominal pain. I will order a Monospot test a COVID a urine urinalysis and urine culture. We will check a lactate. I will give her IV fluids and IV acetaminophen. Despite the fact that she feels short of breath her lungs are clear and her sats are normal. Medical Records Medical records reviewed: Yes I reviewed the patient's medical records. Imaging Data Radiologic Study: Imaging: CT Scan (CTA chest with contrast) Radiologist's impression: vRad impression: 1. There is mild heterogeneous attenuation of the pulmonary parenchyma consistent with mild air trapping from underlying small airways disease. 2. No evidence of acute pulmonary embolism Lab Data Lab results reviewed: Yes I reviewed the patient's lab results. Lab results narrative: No significant abnormalities other than mildly elevated D-dimer. ECG Data Attestation: I personally reviewed and interpreted this ECG (s) as follows: Prior ECG tracings: available for review HPI General Date/Time Provider Initiated Documentation: 07/03/23 16:38 . Limitations to Documentation: no limitations . Information obtained by: patient (And boyfriend) and RN notes reviewed . History of Present Illness with intensity rated at 6. Quality is described as stabbing, HPI Narrative: Time seen was 1640 in bed 9. The patient is a 27-year-old -0-2-1 who presents with a 3 day illness. She states that she felt tired initially and had some dizziness and felt tired. She did 2 COVID test at home both of which were negative. 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 2 days ago she did have a bad headache but does not have a headache presently. She denies any stiff neck or rash. She does complain of muscle fatigue and feeling tired and dizzy. She has had a fever at home but has not documented it. She is also complaining of right-sided chest pain which is lateral and below the right breast. It is 6 out of 7 in severity. She does have associated shortness of breath and the pain is worse with deep inspiration. She tells me she has a 1-year-old at home but she is not nursing. Her last menstrual period was 06/22/2023 to 06/26/2023. She has had a athletic monitor in the past year but she was not sure why it was ordered. She did take 500 mg of acetaminophen at 8 AM this morning. She denies any cough or dysuria. She denies any rashes she denies any neck stiffness. Her boyfriend has also had a mild illness that he describes as feeling dizzy. She denies any rhinorrhea or earache. She said she had a mild sore throat last night which has since resolved. She does feel short of breath and this is worse with recumbency. She is not currently on any control. They use a wood stove to heat their home but they have not been using it this year. They do have working carbon monoxide monitors at home. She denies any leg pain or swelling. She denies any foreign travel. She denies any recent surgeries or prolonged immobilization. No dysuria. No history of immune compromise. She is sexually active and is not using any control currently. Her last menstrual period came a little earlier than usual although her prior menstrual period was 27 days before her last. Related Data Home Medications Medication Instructions Recorded Confirmed prenat.vits,silvano,xnr-lbpy-ccghq 1 tab PO DAILY 01/02/23 01/31/23 cyproheptadine 4 mg tablet 4 mg PO Q8H Headaches #60 tabs 01/31/23 01/31/23 albuterol sulfate 90 mcg/actuation 3 puff inhalation Q4H PRN #6.7 07/03/23 aerosol inhaler grams Previous Rx's Medication Instructions Recorded cyproheptadine 4 mg tablet 4 mg PO Q8H Headaches #60 tabs 01/31/23 albuterol sulfate 90 mcg/actuation 3 puff inhalation Q4H PRN #6.7 07/03/23 aerosol inhaler grams Allergies Allergy/AdvReac Type Severity Reaction Status Date / Time No Known Allergies Allergy Verified 07/03/23 16:04 General Stated Complaint: Chest/Rib CRIS: 3 Review of Systems Narrative: see hpi PFSH All Active Problems (Updated 07/03/23 @ 21:08 by Arpita Grant MD) Migraine (Chronic) Tinea versicolor (Acute) axilla and abdomen Contraception management (Acute) Fever (Acute) Pulmonary air trapping (Acute) Medical History Chiari I malformation Dizziness Dysfunctional uterine bleeding Hx of migraines Chiari malformation diagnosed 03/2021 care and examination Rubella non-immune status, antepartum Surgical History Leg fracture, left Tib/Fib fracture and repair S/P primary low transverse 03/28/22. For breech presentation after unsuccessful ECV. M. 2930gm. [place] Family History Father Hypertension meds in the past Social History Smoking/Tobacco Use Status: Never Smoking risk assessment performed?: Yes Alcohol Intake: never Drug use: Never Substance use type: does not use Household members: spouse, children and other Details: H-Markie. 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 Do you feel safe at home: Yes Do you feel safe in your relationship?: Yes Female Reproductive History Menstrual Duration of menses: 3-5 days Date of last menstrual period: 06/22/23 control method: none History History 3 Para 0 Hx # Term Pregnancies 1 Multiple births 0 Hx # Pregnancies 0 Ectopic pregnancies 0 AB induced 1 Hx Number of Living Children 1 AB spontaneous 1 Past Pregnancies Del. Date GA/Weeks # Preg Succ Route Wgt Sex Labor Lgth Anesth esia Location [facility] 05/21/21 03/28/22 38 No 2920.001 g Male An ne [place] Delivery Date: 05/21/21 Last Updated by: Eve Mancilla CNM SAB Delivery Date: 03/28/22 Last Updated by: Tiffany Marshall LPN Breech Exam Narrative Exam Narrative: The patient is a well-developed well-nourished female who is febrile with a temp of 39.2 ?C. She is normotensive. She is tachycardic compensatory with her fever. She does not appear toxic. She does not appear dyspneic at rest. She is able to speak in full sentences. Const General: cooperative, healthy appearing, comfortable, no acute distress, well developed, well groomed and well hydrated Nutritional Appearance: average body habitus and well nourished Orientation: alert, awake and oriented x3 HENMT Head: normal to inspection, normocephalic, atraumatic and no acral cyanosis Ears: hearing grossly normal bilaterally and external ears normal General nose exam: external nose normal, nares normal and no nasal discharge Face and sinus: normal facial exam, sinuses nontender and face symmetric Mouth: oral mucosae normal, lip normal, tongue normal, oropharynx normal, moist mucous membranes, moist mucous membranes abnormal (Slightly dry) and other (Normal phonation. The patient is handling secretions.) Teeth and gingiva: dentition normal Throat: posterior oropharynx normal, uvula midline and other (Normal tonsils, normal phonation, no evidence of buccal cellulitis) Eyes General: appearance normal, both eyes and all related structures Eyelids: eyelids normal Conjunctivae: conjunctivae normal Sclera: sclerae normal Cornea: corneas normal Pupils: PERRL EOM: EOM intact bilaterally and No nystagmus Other: No photophobia Neck Neck: normal visual inspection, full ROM, no lymphadenopathy, no meningeal signs, trachea midline and supple Lymphatic: no lymphadenopathy noted Chest Chest: normal inspection of the chest Other: There is no rash swelling erythema or warmth below the right breast on the lateral chest where the patient describes her area of pain. Resp Effort & Inspection: normal respiratory effort, able to speak in complete sentences, no audible wheezes, no nasal flaring, no respiratory distress, no retractions, no stridor, not tachypneic, no tracheal deviation, no use of accessory muscles, No prolonged expiratory phase and other (Normal inspiratory to expiratory ratio.) Auscultation: clear to auscultation bilaterally, no rales, no rhonchi, no wheezes and no rubs Tactile Fremitus: tactile fremitus absent Cardio Jugular venous pressure: no JVD Palpation: normal PMI Rate: tachycardic Rhythm: regular rhythm Heart Sounds: S1 normal, S2 normal, no gallops, no murmurs and no rubs Pulses: dorsalis pedis present GI Inspection: normal to inspection and non-distended Palpation: soft, no hepatosplenomegaly, no guarding and nontender Percussion: normal to percussion Auscultation: normal bowel sounds General: No CVA tenderness Back/Spine/Pelvis Back: no CVA tenderness and No back tenderness Cervical Spine: normal cervical lordosis, cervical ROM normal, No cervical muscular tenderness, No pain with cervical ROM, No cervical spinal tenderness and No step off deformity Thoracic/Lumbar Spine: thoracic and lumbar spine normal to inspection, No thoracic spinal tenderness and No lumbar spinal tenderness Pelvis: no pain with anterior-posterior compression and no pain with lateral compression Skin General skin exam: no rashes or lesions noted, turgor normal, no erythema, no mottling, no petechiae, no purpura and other (Skin is normal for ethnicity.) Lesions: no lesions Rashes: no rashes Trauma: no lacerations or abrasions Neuro General: patient alert, patient awake, patient oriented x3, moves all extremities, no meningeal signs, no focal motor deficits and CN's II-XI intact bilaterally Cranial Nerves: CN's II-XI intact bilaterally, PERRL, accommodation normal, EOM intact bilaterally, no nystagmus, facial strength normal, tongue midline, hearing normal and no nystagmus Cognition: normal cognition Speech: speech normal Gait: normal gait Motor: muscle tone normal throughout and strength 5/5 throughout Sensory Exam: no sensory deficits noted Extrem General: normal to inspection, full ROM, capillary refill normal, no clubbing, cyanosis or edema and no calf tenderness Other: No Homans signs or cords Psych Appearance: grossly normal Affect: normal affect Attitude: cooperative Thought Process: normal Thought Content: normal Insight: insight good Judgment: judgment good Other: The patient appears to have capacity make medical decisions. Course Reevaluation(s) Time: 19:18 Reevaluation: The patient feels improved. I have updated her that she will be getting a CT scan to rule out PE. She voiced understanding and agreement with the plan. Time: 21:05 Reevaluation #2: Patient feels improved and ready for discharge. I discussed the findings of the lab work and the air-trapping found on the CT scan. She was not wheezing and does not have a history of asthma but I will write a prescription for an albuterol MDI plus spacer. And I have advised her how to use it. I have advised her to call her primary care provider in the morning for follow-up. I have advised her that the tick panel is still pending at her primary care should be able to access the results or the patient can access them through the patient portal. She declined a note for work. I have also advised her to consider repeating the Monospot test if her symptoms continue. The patient voiced understanding agree with the discharge plan. All her questions and concerns were addressed prior to discharge Vital Signs Vital signs: Vital Signs Temperature 39.2 C H 07/03/23 15:58 Pulse 117 H 07/03/23 15:58 Respiratory Rate 20 07/03/23 15:58 Blood Pressure 148/83 H 07/03/23 15:58 Pulse Oximetry 99 07/03/23 15:58 Temperature 39.2 C H 07/03/23 15:58 Temperature Source Skin 07/03/23 15:58 Pulse 117 H 07/03/23 15:58 Respiratory Rate 20 07/03/23 15:58 Respiratory Effort Normal 07/03/23 16:05 Blood Pressure 148/83 H 07/03/23 15:58 Blood Pressure Position Sitting 07/03/23 15:58 Pulse Oximetry 99 07/03/23 15:58 Oxygen Delivery Method Room Air 07/03/23 15:58 Oxygen Flow Rate 0 07/03/23 15:58 Pain Level 7 07/03/23 15:58
[2023-07-03 17:18] LABS: Bilirubin Negative (Negative); Blood Negative (Negative); Clarity Clear (Clear); Glucose Negative (Negative); Ketones Trace mg/dL (Negative); Leukocyte Esterase Negative (Negative); Nitrite Negative (Negative); Specific Gravity 1.015 (1.005-1.025); Urobilinogen 0.2 mg/dL (Up to 0.2); pH 8.5 (5-8)
[2023-07-03] MEDS: ACETAMINOPHEN 1,000 MG/100 ML BTL 400 MG IVPB (17:43)
[2023-07-03 17:55] LABS: Abs Immature Grans 0.04 10^3/uL (0.0-0.06); Absolute Basophil Count 0.02 10^3/uL (0.0-0.2); Absolute Lymphocyte Count 1.26 10^3/uL (1.2-3.4); Absolute Monocyte Count 0.63 10^3/uL (0.1-0.8); Absolute Neutrophil Count 7.61 10^3/uL (1.2-6.7); Basophils % 0.2; HCT 41.8 % (36.0-46.0); Immature Grans % 0.4; Lymphocytes % 13.2; MCH 27.9 pg (27.0-33.0); MCHC 33.5 % (32.0-36.0); MCV 83 fL (80-95); Monocytes % 6.6; Neutrophils % 79.6; Platelet Count 197 10^3/uL (130-400); RBC 5.01 10^6/uL (3.93-5.22); RDW 11.9 % (11.7-14.6); RDW-SD 35.9 fL; WBC 9.56 10^3/uL (4.4-10.8)
[2023-07-03] MEDS: Normal Saline 1,000 ML 1000 ML IV (17:55)
[2023-07-03 17:59] LABS: COVID-19 PCR Negative (Negative); Influenza A PCR Negative (Negative); Influenza B PCR Negative (Negative); RSV PCR Negative (Negative)
[2023-07-03 18:02] LABS: Mono Screening Negative (Negative)
[2023-07-03 18:12] LABS: Source Nasopharynx
[2023-07-03 18:19] LABS: ALT 22 U/L (14-59); AST 22 U/L (15-37); Alkaline Phosphatase 77 U/L (46-116); Anion Gap 9.8 mmol/L (3-11); BUN 6 mg/dL (7-18); Bilirubin, Total 0.5 mg/dL (0.2-1.0); CO2 28.2 mmol/L (21.0-32.0); CREATININE 0.7 mg/dL (0.55-1.02); Calcium 9.7 mg/dL (8.5-10.1); Chloride 96 mmol/L (98-107); Estimated GFR 120.74 (mL/min/1.73m2); Glucose 102 mg/dL (74-106); Lipase 31 U/L (16-77); Potassium 4.1 mmol/L (3.5-5.1); Sodium 134 mmol/L (136-145); Total Protein 8.9 g/dL (6.4-8.2)
[2023-07-03 18:38] LABS: D-Dimer 614 ng/mlFEU (<500)
--- NOTE | 2023-07-03 19:11 | NUR.NOTE ---
Received report from Maxine TATUM, assumed care at this time, introduced self to pt, no needs verbalized at this time.
--- NOTE | 2023-07-03 19:15 | DI.CT_ITS ---
Exam(s) CT CHEST PE CTA EXAM: CT CHEST PE CTA CLINICAL HISTORY: PLEURITIC L SIDED CP, RULE OUT PE. TECHNIQUE: Imaging Protocol: Axial CT angiography was performed with multi-slice acquisition and mu lti-planar reconstructions as well as axial, coronal and sagittal MIP reconstructions. CONTRAST MATERIAL: Intravenous: Omnipaque 350 Contrast volume:65 ml COMPARISON: No exams were available for comparison FINDINGS: Pulmonary Arteries: No evidence of filling defect to suggest pulmonary emboli. Tracheobronchial tree: Patent where visualized. Mediastinum and Sherin: No dominant adenopathy or fluid collection. Pulmonary parenchyma: Expiratory changes. No consolidation or dominant measurable mass. Pleura: No effusion or pneumothorax. Heart: The heart is not dilated. No coronary artery calcifications are seen. Aorta: Thoracic aorta non-dilated. No aneurysm. No dissection. Upper abdomen: Unremarkable. Bones: Unremarkable for age. Tubes, Catheters, and Lines: None IMPRESSION: No evidence of pulmonary embolism or other acute abnormality.. RADIATION DOSE DELIVERED: 390.34mGy.cm Total DLP DATA REPOSITORY: All CT scans at this facility are submitted to the National Radiology Data Registry (NRDR) Dose Index Registry (DIR) with the [employer] (ACR). RADIATION OPTIMIZATION: All CT scans at this facility use at least one of these dose optimization te chniques: automated exposure control; mA and/or kV adjustment per patient size (includes targeted exa ms where dose is matched to clinical indication); or iterative reconstruction.
[2023-07-03] MEDS: Normal Saline 250 ML IV (19:30)
[2023-07-03] MEDS: Normal Saline - Diluent 50 ML VIAL IJ (19:45)
[2023-07-03] MEDS: Omnipaque 350 MG/ML 100 ML BTL IJ (19:45)
[2023-07-03] MEDS: Normal Saline Flush 10 ML SYR IVP (19:46)
--- NOTE | 2023-07-03 20:26 | DI.VRAD_ITS ---
PROCEDURE INFORMATION: Exam: CTA Chest With Contrast Exam date and time: 07/03/2023 7:57 PM Age: 27 years old Clinical indication: Pain; Other: Pleuritic L sided cp, rule out pe TECHNIQUE: Imaging protocol: Computed tomographic angiography of the chest with contrast. Exam focused on the arteries. 3D rendering (Not supervised by radiologist): MIP and/or 3D reconstructed images were created by the technologist. Radiation optimization: All CT scans at this facility use at least one of these dose optimization techniques: automated exposure control; mA and/or kV adjustment per patient size (includes targeted exams where dose is matched to clinical indication); or iterative reconstruction. Contrast material: OMNIPAQUE 350; Contrast volume: 65 ml; Contrast route: INTRAVENOUS (IV); COMPARISON: No relevant prior studies available. FINDINGS: Pulmonary arteries: The pulmonary arteries are normal in caliber. No evidence of acute pulmonary embolism. Aorta: The aorta is normal without evidence of aneurysmal dilatation, dissection or occlusive disease. Lungs: There are bilateral lower lobe atelectatic changes present. There is mild heterogeneous attenuation of the pulmonary parenchyma, consistent with mild air trapping from underlying small airways disease. There is no evidence of focal pulmonary consolidation. No evidence of pulmonary parenchymal inflammatory changes. There is no evidence of pulmonary masses. Pleural spaces: There is no evidence of pneumothorax. There are no pleural effusions present. Heart: The cardiac structures are normal. The right ventricular to left ventricular ratio is normal measuring approximately 0.85. Lymph nodes: There is no evidence of lymphadenopathy. Bones/joints: The spine, sternum, ribs, and pectoral girdles show no evidence of acute abnormality. Soft tissues: There are no soft tissue masses or fluid collections. The upper abdominal viscera are unremarkable. Other findings: The mediastinal structures are normal. IMPRESSION: 1. There is mild heterogeneous attenuation of the pulmonary parenchyma, consistent with mild air trapping from underlying small airways disease. 2. No evidence of acute pulmonary embolism. Dictated and Authenticated by: Danilo Washington MD. Ordering:FRANK Palm MD
[2023-07-03 21:09] VITALS: BP 106/95; PULSE 87; TEMP 36.4; O2SAT 97
[2023-07-05 09:41] LABS: Lyme Ab w Rflx to Lyme Confirm Negative (Negative)
[2023-07-06 23:22] LABS: Anaplasma phagocytophilum Negative (Negative); B. miyamotoi PCR Negative (Negative); Babesia divergens/MO-1 Negative (Negative); Babesia duncani Negative (Negative); Babesia microti Negative (Negative); Ehrlichia chaffeensis Negative (Negative); Ehrlichia ewingii/canis Negative (Negative); Ehrlichia muris eauclairensis Negative (Negative)
== END 2023-07-03 21:20 | disposition home or self-care (01) ==
PROVIDERS: Emergency Provider Emergency Medicine Emergency Medical Services; PCP Physician Assistant
DX: R50.9 Fever, unspecified (principal); R51.9 Headache, unspecified; R07.1 Chest pain on breathing; J98.8 Other specified respiratory disorders; R42 Dizziness and giddiness; R06.02 Shortness of breath; Z20.822 Contact with and (suspected) exposure to COVID-19
CPT/HCPCS: 36415; 71275; 80053; 81025; 83690; 87040; 87426; 87637; 87798; 93005; 96361; 96374; 99285; 81003; 85025; 85379; 86308; 86618; 87086; 93010; 99284; J0131; J3490

== ENCOUNTER 2023-12-27 16:00 | Outpatient (REF) | payer BC, SELFPAY ==
--- NOTE | 2023-12-27 15:50 | PAPFT_PTH ---
PATIENT: Rima Moralez LOC: [facility] U#:[id number] AGE/SX: 28/F ROOM: RE12/27/[address]: Giana Lala MD : [id number] BED: DIS: 12/27/2023 SPEC #: [id number] RECD: 12/27/23 18:23 STATUS: IKE RERosy #: [id number] RACHEAL: 12/27/23 15:[address]: Giana Lala DEPT: [facility] Cytology RECD BY: Naa Elias ENTERED: 12/27/23 18:24 SP TYPE: PAPFT OTHR DR: Guillermina Kumar Tissues: 1 - CX/ENDOCX FOR PAP SMEARS Procedures: PAP THIN PREP/[facility] Screening Comments: [id number]
== END 2023-12-27 16:01 | disposition home or self-care (01) ==
LOC: LBN 16:00
PROVIDERS: PCP Physician Assistant; Visit Provider Obstetrics & Gynecology
DX: Z12.4 Encounter for screening for malignant neoplasm of cervix (principal)
CPT/HCPCS: 88142

== ENCOUNTER → 2024-02-05 03:27 | Outpatient (CLI) | payer BC, SELFPAY ==
--- NOTE | 2024-02-05 09:46 | DI.MAMMO_ITS ---
Exam(s) US BREAST RT LIMITED MG MAMMO DIAGNOSTIC BI EXAM: MG MAMMO DIAGNOSTIC BI CLINICAL HISTORY: rt breast pain,n64.4. COMPARISON: US US BREAST RT LIMITED from 02/05/2024. Baseline examination. TECHNIQUE: Craniocaudal and mediolateral oblique Full Field Digital Mammography views of both breast s with Computer Aided Diagnosis followed by Tomosynthesis and right breast ultrasound. FINDINGS: Mammography/Tomosynthesis: Masses/Architectural Distortion: None seen. Microcalcifications: No suspicious pleomorphic-type are seen. Skin Thickening/Nipple Retraction: None. Right breast US: Echotexture: Normal appearance of the glandular tissue. Shadowing: No suspicious foci. Cyst: None. Solid lesions: None seen. Ductal dilation: None. IMPRESSION: 1. No evidence of malignancy is noted. 2. Unless there is more urgent need, follow-up screening mammography is recommended, as per [place] [employer] guidelines. BI-RADS Category 1 - Negative Breast Density - Category B - Scattered areas of fibroglandular density Breast density category C or D implies that the patient has dense breast tissue. Dense breast tissue is very common and is not abnormal but dense breast tissue can make it harder to find cancer on a ma mmogram. Also, dense breast tissue may increase their breast cancer risk. This information about the result of the mammogram report was provided to the patient to raise their awareness. Use this report when you speak with the patient about their risks for breast cancer, which includes their family hist ory. At that time, you may recommend for more screening tests (Ultrasound or MRI) as they might be us eful based on their risk. A negative radiographic report should not delay biopsy if a dominant or clinically suspicious mass is present. Up to ten percent of cancers are not identified on mammography. A negative report may reinforce clinical impression. Adenosis and dense breasts may obscure an underlying neoplasm. False positive reports average 6 to 10%. Patient will receive a letter notifying them of these results.
== END ==
PROVIDERS: PCP Physician Assistant; Visit Provider Obstetrics & Gynecology
DX: N64.4 Mastodynia (principal); R92.321 Mammographic fibroglandular density, right breast
CPT/HCPCS: 76642; 77062; 77066; G0279

== ENCOUNTER 2024-07-28 10:45 | Emergency (ER) | payer BC, SELFPAY ==
[2024-07-28 11:15] VITALS: BP 139/91; PULSE 83; RESP 18; TEMP 36.9; O2SAT 99
--- NOTE | 2024-07-28 11:30 | DI.MRI_ITS ---
Exam(s) MR BRAIN WO EXAM: MR BRAIN WO CLINICAL HISTORY: chiari malform, HAGEN, dizzy, vision changes TECHNIQUE: Multiplanar multisequence MRI of the brain was performed. COMPARISON: MR MR BRAIN WO CONTRAST from 01/02/2023 FINDINGS: VENTRICLES AND EXTRA AXIAL SPACES: Normal in size and morphology for the patient's age. MIDLINE SHIFT: None. CEREBRAL PARENCHYMA: No focus of restricted diffusion to suggest acute infarct. No space-occupying le darin identified. No abnormal white matter foci. BRAINSTEM/CEREBELLUM: Cerebellar tonsils extend mildly below the foramen magnum, unchanged from prior . There is no peg like configuration of crowding of the brainstem. VISUALIZED PARANASAL SINUSES: Mild mucous retention in the maxillary sinuses. MASTOIDS:Clear. Vasculature: Normal flow void. PITUITARY GLAND: Unremarkable. ORBITS: Unremarkable. IMPRESSION: Stable appearance of Chiari 1 malformation. No acute abnormality. DATA REPOSITORY:
--- NOTE | 2024-07-28 11:30 | DI.MRI_ITS ---
Exam(s) MR CERVICAL SPINE WO EXAM: MR CERVICAL SPINE WO CLINICAL HISTORY: chiari malform, HAGEN, dizzy, vision changes TECHNIQUE: Multiplanar multisequence MRI of the cervical spine was performed without intravenous con trast. COMPARISON: No exams were available for comparison FINDINGS: BONES: Vertebral body heights are maintained. Alignment is normal. Bone marrow signal intensity is wi thin normal limits. CERVICAL CORD: Cerebellar tonsils extend below the level of the foramen magnum 5 proximally 5 millime ters. There is no significant crowding of brainstem. The cervical cord is normal size and signal in tensity. SOFT TISSUES: Unremarkable. C2-3: No disc herniation or bulge is identified. No evidence of neural foraminal narrowing. No signi ficant central canal stenosis. C3-4: No disc herniation or bulge is identified. No evidence of neural foraminal narrowing. No signif icant central canal stenosis. C4-5: No disc herniation or bulge is identified. No evidence of neural foraminal narrowing. No signif icant central canal stenosis. C5-6: No disc herniation or bulge is identified. No evidence of neural foraminal narrowing. No signif icant central canal stenosis. C6-7: No disc herniation or bulge is identified. No evidence of neural foraminal narrowing. No signif icant central canal stenosis. C7-T1: No disc herniation or bulge is identified. No evidence of neural foraminal narrowing. No signi ficant central canal stenosis. IMPRESSION: Mild Chiari 1 malformation. No evidence of mass effect on brainstem. Normal cord signal. No evidence of disc herniation. DATA REPOSITORY:
[2024-07-28 12:59] LABS: Abs Immature Grans 0.04 10^3/uL (0.0-0.06); Absolute Basophil Count 0.05 10^3/uL (0.0-0.2); Absolute Eosinophil Count 0.06 10^3/uL (0.0-0.7); Absolute Lymphocyte Count 2.12 10^3/uL (1.2-3.4); Absolute Monocyte Count 0.44 10^3/uL (0.1-0.8); Absolute Neutrophil Count 8.59 10^3/uL (1.2-6.7); Basophils % 0.4 %; Eosinophils % 0.5 %; HCT 42.7 % (36.0-46.0); HGB 14.1 g/dL (11.2-15.7); Immature Grans % 0.4 %; Lymphocytes % 18.8 %; MCV 85 fL (80-95); MPV 8.9 fL (8.0-11.0); Monocytes % 3.9 %; Platelet Count 291 10^3/uL (130-400); RBC 5.04 10^6/uL (3.93-5.22); RDW 12.1 % (11.7-14.6); RDW-SD 36.5 fL
--- NOTE | 2024-07-28 13:02 | ED.GENADUL_ITS ---
Discharge Plan Disposition Patient Disposition: Home Condition: Stable Discharge Details Clinical Impression: Migraine, Arnold-Chiari malformation, type I Primary Care Provider: Guillermina Kumar ED Provider: Dede Hope Home Meds and New Rx's Prescriptions: No Action multivitamin Tablet 1 tab PO DAILY albuterol sulfate 90 mcg/actuation HFA aerosol inhaler 3 puff inhalation Q4H PRNQty: 6.7 0RF Rx Instructions: 3 puffs, 5 minutes apart every 4 hours as needed for shortness of breath. Use with spacer Discharge Instructions Instructions: Headache, Adult ED Additional Instructions: You were seen in the emergency department today for evaluation of a headache. In our department he had a full physical examination performed, had reassuring laboratory studies and had an MRI performed that did not show any abnormalities to account for your symptoms, and did not show any changes in your Chiari malformation or complications from this condition. It is possible that you are experiencing a migraine headache, and should follow-up with your primary care provider in the next few days to discuss this visit and any symptoms that change, worsen, or persist. Thank for allowing us to be part of your care. Discharge Data Discharge Date/Time-TO BE ENTERED AT DEPARTURE: 07/28/24 16:07 HPI General Mode of arrival: ambulatory . Date/Time Provider Initiated Documentation: 07/28/24 11:20 . Limitations to Documentation: no limitations . Information obtained by: patient and old records reviewed . HPI Narrative: HPI: This is a 28-year-old female patient with a past medical history significant for Chiari I malformation, migraine, presenting for evaluation of several weeks of headache and dizziness. The patient reports that her symptoms feel similar to prior migraines though they have lasted longer than his typical. She reports that given her history of Chiari malformation she felt very anxious regarding the symptoms that something structurally was wrong. She feels a pressure in the back of her head, and noted some blurriness of her vision that did not improve with changing her contact lenses. The patient has not had any fevers or chills, falls or injuries, has been eating and drinking normally. She has been taking all medications as prescribed. Exam: Gen: Awake and alert, in no apparent distress HEENT: Non-icteric sclera, pupils equal and reactive at 3 mm bilaterally Neck: Supple, no meningismus Lungs: No apparent respiratory distress, normal respiratory effort. CV: Appears well perfused Abdomen: Non-distended MSK: Moves 4 extremities without apparent limitation in ROM Skin: Visualized skin without rashes, cyanosis. Neuro: Cranial nerves II through XII intact and symmetrical bilaterally, 5 out of 5 strength x 4 extremities, no sensory deficits, normal gait without ataxia Psych: Appropriate for situation. MDM: This is a 28-year-old female patient presenting for evaluation of headaches and dizziness. My differential includes but is not limited to migraine headache, tension headache, certainly considered syringomelia and obstructive pathology due to her Chiari malformation. The patient has no neurodeficits on physical examination, no thunderclap quality to her headache, and the durations of symptoms is such that I have a lower concern for stroke, intracranial hemorrhage, intracranial mass effect, dural venous sinus thrombosis. We will obtain laboratory studies to include CBC, CMP, magnesium, and will obt ain an MRI brain and C-spine to evaluate for structural abnormalities which could explain her symptoms. It is send the patient is not desiring of any medications for management of her pain. ED Course: I independently interpreted the laboratory studies, which show no significant leukocytosis, anemia, or thrombocytopenia. The chemistry panel is without evidence of electrolyte abnormality, kidney dysfunction, or liver injury. MRI imaging shows no abnormalities that would account for the patient's symptoms, specifically note no change in his Chiari malformation, no evidence of mass effect or compressive effects, and these findings were shared with the patient. I recommended that she continue her home regimens for headache management and continue to follow-up with her primary care provider for further workup and management. Her neuro examination remains nonfocal. At this time, the patient has had a full medical evaluation and is safe for discharge to home. They are hemodynamically stable, ambulatory, and tolerating PO. They are understanding of the follow-up plan and return precautions. They left our facility without incident. Dede Hope MD Related Data Home Medications ?Medication ?Instructions ?Recorded ?Confirmed albuterol sulfate 90 mcg/actuation 3 puff inhalation Q4H PRN #6.7 07/03/23 07/28/24 aerosol inhaler grams multivitamin 1 tab PO DAILY 12/27/23 07/28/24 Previous Rx's ?Medication ?Instructions ?Recorded albuterol sulfate 90 mcg/actuation 3 puff inhalation Q4H PRN #6.7 07/03/23 aerosol inhaler grams General Stated Complaint: GenMedical CRIS: 3 Course Vital Signs Vital signs: Vital Signs Temperature 36.9 C 07/28/24 11:15 Pulse 83 07/28/24 11:15 Respiratory Rate 18 07/28/24 11:15 Blood Pressure 139/91 H 07/28/24 11:15 Pulse Oximetry 99 07/28/24 11:15 Temperature 36.9 C 07/28/24 11:15 Temperature Source Oral 07/28/24 11:15 Pulse 83 07/28/24 11:15 Respiratory Rate 18 07/28/24 11:15 Blood Pressure 139/91 H 07/28/24 11:15 Blood Pressure Position Sitting 07/28/24 11:15 Pulse Oximetry 99 07/28/24 11:15 Oxygen Delivery Method Room Air 07/28/24 11:15 Oxygen Flow Rate 0 07/28/24 11:15 Pain Level 6 07/28/24 11:15 Lab/Test Results Lab/Test Results: Laboratory Tests Range/Units 07/28/24 12:30 WBC (4.4-10.8) 10^3/uL 11.30 H RBC (3.93-5.22) 10^6/uL 5.04 Hgb (11.2-15.7) g/dL 14.1 Hct (36.0-46.0) % 42.7 MCV (80-95) fL 85 MCH (27.0-33.0) pg 28.0 MCHC (32.0-36.0) % 33.0 RDW (11.7-14.6) % 12.1 Plt Count (130-400) 10^3/uL 291 MPV (8.0-11.0) fL 8.9 Immature Gran % % 0.4 Neutrophils % % 76.0 Lymphocytes % % 18.8 Monocytes % % 3.9 Eosinophils % % 0.5 Basophils % % 0.4 Nucleated RBC % (0.0-0.3) % 0.0 Absolute Neutrophils (1.2-6.7) 10^3/uL 8.59 H Absolute Lymphocytes (1.2-3.4) 10^3/uL 2.12 Absolute Monocytes (0.1-0.8) 10^3/uL 0.44 Absolute Eosinophils (0.0-0.7) 10^3/uL 0.06 Absolute Basophils (0.0-0.2) 10^3/uL 0.05 Medical Decision Making Quality:SDOH Health Related Social Needs: No Data to Display PFSH All Active Problems (Updated 07/28/24 @ 15:56 by Dede Hope MD) Arnold-Chiari malformation, type I (Acute) Tinea versicolor (Acute) axilla and abdomen Migraine (Chronic) Medical History (Updated 07/28/24 @ 15:56 by Dede Hope MD) Chiari I malformation Dizziness Hx of migraines Chiari malformation diagnosed 03/2021 Surgical History S/P primary low transverse 03/28/22. For breech presentation after unsuccessful ECV. M. 2930gm. [place] Leg fracture, left Tib/Fib fracture and repair Family History Father Hypertension meds in the past Social History Smoking/Tobacco Use Status: Never Smoking risk assessment performed?: Yes Alcohol Intake: never Drug use: Never Substance use type: does not use Household members: spouse, children and other Details: H-Markie. 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 Do you feel safe at home: Yes Do you feel safe in your relationship?: Yes Female Reproductive History Menstrual Duration of menses: 3-5 days control method: none History History 3 Para 1 Hx # Term Pregnancies 1 Multiple births 0 Hx # Pregnancies 0 Ectopic pregnancies 0 AB induced 1 Hx Number of Living Children 1 AB spontaneous 1 Past Pregnancies Del. Date GA/Weeks # Preg Succ Route Wgt Sex Labor Lgth Anesth esia Location Prov Complic 05/21/21 03/28/22 38 No 2920.001 g Male An ne [place] Delivery Date: 05/21/21 Last Updated by: Eve Mancilla CNM SAB Delivery Date: 03/28/22 Last Updated by: Tiffany Marshall LPN Breech
[2024-07-28 13:03] LABS: ALT 19 U/L (14-59); AST 16 U/L (15-37); Alkaline Phosphatase 70 U/L (46-116); Anion Gap 8.8 mmol/L (3-11); BUN 7 mg/dL (7-18); Bilirubin, Total 0.36 mg/dL (0.2-1.0); CO2 28.2 mmol/L (21.0-32.0); CREATININE 0.7 mg/dL (0.55-1.02); Calcium 9.6 mg/dL (8.5-10.1); Chloride 106 mmol/L (98-107); Estimated GFR 119.99 (mL/min/1.73m2); Glucose 104 mg/dL (74-106); Potassium 3.6 mmol/L (3.5-5.1); Sodium 143 mmol/L (136-145); Total Protein 8.5 g/dL (6.4-8.2)
[2024-07-28 13:09] VITALS: BP 139/91; PULSE 83; RESP 15; RESP 18; TEMP 36.9; O2SAT 99
[2024-07-28 16:06] VITALS: BP 128/98; PULSE 83; RESP 18; O2SAT 100
== END 2024-07-28 16:07 | disposition home or self-care (01) ==
PROVIDERS: Emergency Provider Emergency Medicine; PCP Physician Assistant
DX: G43.909 Migraine, unspecified, not intractable, without status migrainosus (principal); G93.5 Compression of brain
CPT/HCPCS: 80053; 99284; 70551; 72141; 83735; 85025

== ENCOUNTER 2024-11-11 01:58 | Outpatient (CLI) | payer BC, SELFPAY ==
[2024-11-11 17:06] LABS: TSH (W/Ref FT4) 0.81 uIU/mL (0.36-3.74)
== END 2024-11-11 01:59 | disposition home or self-care (01) ==
LOC: LBO 01:58
PROVIDERS: PCP Physician Assistant; Visit Provider Nurse Practitioner Adult Health
DX: R51.9 Headache, unspecified (principal); R63.5 Abnormal weight gain; R53.83 Other fatigue
CPT/HCPCS: 36415; 84443

== ENCOUNTER 2024-11-13 18:17 | Outpatient (REF) | payer BC, SELFPAY ==
[2024-11-13 19:21] LABS: Abs Immature Grans 0.02 10^3/uL (0.0-0.06); Absolute Basophil Count 0.06 10^3/uL (0.0-0.2); Absolute Eosinophil Count 0.19 10^3/uL (0.0-0.7); Absolute Lymphocyte Count 2.96 10^3/uL (1.2-3.4); Absolute Monocyte Count 0.62 10^3/uL (0.1-0.8); Basophils % 0.5 %; Eosinophils % 1.5 %; HCT 42.9 % (36.0-46.0); HGB 14.2 g/dL (11.2-15.7); Immature Grans % 0.2 %; Lymphocytes % 23.8 %; MCH 28.1 pg (27.0-33.0); MCHC 33.1 % (32.0-36.0); MCV 85 fL (80-95); MPV 9.3 fL (8.0-11.0); Platelet Count 309 10^3/uL (130-400); RBC 5.06 10^6/uL (3.93-5.22); RDW 12.3 % (11.7-14.6); WBC 12.45 10^3/uL (4.4-10.8)
[2024-11-13 19:23] LABS: Absolute Neutrophil Count 8.59 10^3/uL (1.2-6.7)
[2024-11-13 19:29] LABS: Iron 35 ug/dL (50-170); Total Iron Binding Capacity 302 ug/dL (250-450); Transferrin Sat 12 % (15-50)
[2024-11-13 19:35] LABS: Hemoglobin A1C 5.3 % (<5.7)
[2024-11-13 20:15] LABS: Folate 14.8 ng/mL (8.6-20.0); Vitamin B12 923 pg/mL (193-986)
[2024-11-14 01:33] LABS: Ferritin 35 ng/mL (8-252)
== END 2024-11-13 18:18 | disposition home or self-care (01) ==
LOC: NCHCN 18:17
PROVIDERS: PCP Physician Assistant; Visit Provider Physician Assistant
DX: R42 Dizziness and giddiness (principal)
CPT/HCPCS: 82607; 82728; 82746; 83036; 83540; 83550; 85025